=== PATIENT | male | born 1970 | race Caucasian/White ===

== ENCOUNTER → 2019-03-13 11:10 | Outpatient (BNVA) | payer MEDICARE, MEDICAID, SELFPAY | PROVIDERS: Family Provider Nurse Practitioner; PCP Nurse Practitioner; Visit Provider Nurse Practitioner | DX: G89.29 Other chronic pain (principal); M54.16 Radiculopathy, lumbar region; E11.40 Type 2 diabetes mellitus with diabetic neuropathy, unspecified; Z98.890 Other specified postprocedural states; Z79.891 Long term (current) use of opiate analgesic | CPT/HCPCS: 99213; 99214 ==

== ENCOUNTER → 2019-04-10 11:36 | Outpatient (BNVA) | payer MEDICARE, MEDICAID, SELFPAY | PROVIDERS: Family Provider Nurse Practitioner; PCP Nurse Practitioner; Visit Provider Anesthesiology | DX: G89.29 Other chronic pain (principal); M54.16 Radiculopathy, lumbar region; M79.651 Pain in right thigh; E11.40 Type 2 diabetes mellitus with diabetic neuropathy, unspecified; Z79.891 Long term (current) use of opiate analgesic | CPT/HCPCS: 99214 ==

== ENCOUNTER → 2019-06-05 09:04 | Outpatient (BNVA) | payer MEDICARE, MEDICAID, SELFPAY | PROVIDERS: Family Provider Nurse Practitioner; PCP Nurse Practitioner; Visit Provider Nurse Practitioner | DX: Z76.89 Persons encountering health services in other specified circumstances (principal) | CPT/HCPCS: 99213 ==

== ENCOUNTER → 2019-06-11 16:37 | Outpatient (BNVA) | payer MEDICARE, MEDICAID, SELFPAY | PROVIDERS: Family Provider Nurse Practitioner; PCP Nurse Practitioner; Visit Provider Nurse Practitioner | DX: E10.9 Type 1 diabetes mellitus without complications (principal) | CPT/HCPCS: 80053; 80061; 82044; 83036 ==

== ENCOUNTER → 2019-08-11 10:17 | Outpatient (BNVA) | payer MEDICARE, MEDICAID, SELFPAY | PROVIDERS: Family Provider Nurse Practitioner; PCP Nurse Practitioner; Visit Provider Nurse Practitioner | DX: G89.29 Other chronic pain (principal); M54.16 Radiculopathy, lumbar region; M54.9 Dorsalgia, unspecified; Z79.891 Long term (current) use of opiate analgesic | CPT/HCPCS: 99213 ==

== ENCOUNTER 2019-09-25 13:29 | Emergency (ER) | payer MEDICARE, MEDICAID, SELFPAY ==
[2019-09-25 13:31] VITALS: BMI 25.5
[2019-09-25 13:35] VITALS: BP 132/81; PULSE 62; PULSE 74; RESP 16; RESP 18; TEMP 36.7; O2SAT 98; O2SAT 99
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
[2019-09-25 14:22] VITALS: RESP 18; O2SAT 98
[2019-09-25] MEDS: ondansetron 2 mg/ML SDV 2 mL 4 MG IVP (14:22)
[2019-09-25] MEDS: morphine 4 mg/mL SDV 1 mL IVP (14:22)
[2019-09-25 14:23] LABS: Alanine Aminotransferase 29 U/L (0-41); Albumin Level 3.9 g/dL (3.5-5.2); Alkaline Phosphatase 143 IU/L (40-130); Aspartate Amino Transferase 44 U/L (0-40); Blood Urea Nitrogen 7 mg/dL (6-20); Calcium 8.5 mg/dL (8.5-10.5); Carbon Dioxide 24 mmol/L (22-29); Chloride 103 mmol/L (98-107); Globulin 2.9 g/dL (1.3-4.6); Glomerular Filtration Rate 119.4 mL/min (90-130); Glucose 61 mg/dL (65-115); Osmolality Calculated 280 mOsm/kg (285-295); Sodium 138 mmol/L (136-145); Total Bilirubin 0.3 mg/dL (0.15-1.2); Total Protein 6.8 g/dL (6.6-8.7)
[2019-09-25 14:46] LABS: Anion Gap 14.8 (5-19); Potassium 3.8 mmol/L (3.5-5.1)
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
[2019-09-25 15:23] LABS: Basophils # 0.1 10^3/uL (0.0-0.1); Basophils % 0.8 %; Eosinophils # 0.2 10^3/uL (0.0-0.8); Eosinophils % 1.7 %; Hematocrit 39.5 % (42.0-52.0); Hemoglobin 12.5 g/dL (11.7-16.6); Lymphocytes # 3.3 10^3/uL (0.8-4.8); Lymphocytes % 24.4 %; Mean Corpuscular HGB Conc 31.6 g/dL (30.0-36.0); Mean Corpuscular Hemoglobin 30.1 pg (28.0-34.0); Mean Corpuscular Volume 95.2 fL (80-94); Mean Platelet Volume 9.4 fL (7.4-10.4); Monocytes # 1.3 10^3/uL (0.2-0.9); Monocytes % 9.7 %; Neutrophils # 8.41 10^3/uL (1.8-7.7); Nucleated Red Blood Cells % 0 %; Platelet Count 313 10^3/cmm (130-400); Red Blood Count 4.15 10^6/uL (4.1-5.3); Red Cell Distribution Width 12.5 % (12.1-15.1); White Blood Count 13.3 10^3/uL (4.0-10.0)
--- NOTE | 2019-09-25 15:47 | PC.NURSE ---
blood glucose is 94. nurse is aware
[2019-09-25 15:51] LABS: Glucose Point of Care 94 mg/dL (70-110)
[2019-09-25 15:53] VITALS: BP 118/83; PULSE 74; RESP 18; TEMP 36.6; O2SAT 98
== END 2019-09-25 16:01 ==
PROVIDERS: Emergency Provider Emergency Medicine; Family Provider Nurse Practitioner; PCP Nurse Practitioner
DX: S02.0XXB Fracture of vault of skull, initial encounter for open fracture (principal); S02.40EB Zygomatic fracture, right side, initial encounter for open fracture; Y00.XXXA Assault by blunt object, initial encounter; E16.2 Hypoglycemia, unspecified; Z79.82 Long term (current) use of aspirin; Z79.02 Long term (current) use of antithrombotics/antiplatelets; Z79.4 Long term (current) use of insulin; I25.10 Atherosclerotic heart disease of native coronary artery without angina pectoris; E10.40 Type 1 diabetes mellitus with diabetic neuropathy, unspecified; Z87.891 Personal history of nicotine dependence
CPT/HCPCS: 12032; 12052; 12345; 36416; 70450; 70486; 72125; 80053; 82962; 85025; 86850; 86900; 96365; 96375; 96376; 99282; 99285; J0690; J2270; J2405

== ENCOUNTER → 2019-10-13 13:32 | Outpatient (BNVA) | payer MEDICARE, MEDICAID, SELFPAY | PROVIDERS: Family Provider Nurse Practitioner; PCP Nurse Practitioner; Visit Provider Anesthesiology | DX: G89.29 Other chronic pain (principal); M54.41 Lumbago with sciatica, right side; M54.16 Radiculopathy, lumbar region; M54.9 Dorsalgia, unspecified; Z79.891 Long term (current) use of opiate analgesic | CPT/HCPCS: 99213; 99214 ==

== ENCOUNTER 2019-11-04 09:47 | Outpatient (CLI) | payer MEDICARE, MEDICAID, SELFPAY ==
--- NOTE | 2019-11-04 09:58 | CT_ITS ---
WS: [id number] CT HEAD NONCONTRAST HISTORY: SUBDURAL HEMATOMA, SKULL FRACTURE TECHNIQUE: Contiguous axial imaging performed through the brain in 2.5 mm imaging. Bone and soft tiss ue windows. All CT scans at [facility] use at least one of these dose optimization techniq ues: automated exposure control; mA and/or kV adjustment per patient size (includes targeted exams wh ere dose is matched to clinical indication); or iterative reconstruction. DLP: 992.04 mGycm COMPARISON: 09/25/2019 Significant improvement in the recently described RIGHT temporal lobe hemorrhagic contusion in the RI GHT frontal hemorrhagic contusion with adjacent subdural blood and subarachnoid blood. No new or incr easing acute blood products. There is an area of decreased attenuation in the RIGHT temporal lobe fro m the resolving hemorrhage. No significant atrophy. No midline shift. No intraventricular blood. No hydrocephalus. Ventricles: Normal size with no hydrocephalus. Paranasal sinuses: As visualized are clear. Mastoid air cells: Well pneumatized. Calvarium and scalp: There is a depressed skull fracture over the RIGHT temporal bone. Fracture is de pressed by 7.6 mm. Nondisplaced RIGHT zygomatic arch fracture. Resolving scalp hematoma and subcutaneous air. CT/CT head wo con* [id number] IMPRESSION: 1. Significant improvement of the hemorrhagic contusions in the RIGHT frontal and RIGHT temporal lobe with adjacent subdural and subarachnoid blood. No signi ficant residual acute blood products are identified. 2. No hydrocephalus. 3. Depressed skull fracture RIGHT temporal bone is unchanged.
== END 2019-11-04 09:48 | disposition home or self-care (01) ==
LOC: RADWPI 09:51
PROVIDERS: Family Provider Nurse Practitioner; PCP Nurse Practitioner; Visit Provider Neurological Surgery
DX: S06.5X9A Traumatic subdural hemorrhage with loss of consciousness of unspecified duration, initial encounter (principal); S02.19XA Other fracture of base of skull, initial encounter for closed fracture; X58.XXXA Exposure to other specified factors, initial encounter
CPT/HCPCS: 70450

== ENCOUNTER → 2019-11-05 10:06 | Outpatient (BNVA) | payer MEDICARE, MEDICAID, SELFPAY | PROVIDERS: Family Provider Nurse Practitioner; PCP Nurse Practitioner; Visit Provider Nurse Practitioner | DX: E10.9 Type 1 diabetes mellitus without complications (principal); Z95.9 Presence of cardiac and vascular implant and graft, unspecified; R39.11 Hesitancy of micturition; J45.909 Unspecified asthma, uncomplicated | CPT/HCPCS: 80053; 80061; 83036 ==

== ENCOUNTER → 2019-12-09 10:25 | Outpatient (BNVA) | payer MEDICARE, MEDICAID, SELFPAY | PROVIDERS: Family Provider Nurse Practitioner; PCP Nurse Practitioner; Visit Provider Anesthesiology | DX: G89.29 Other chronic pain (principal); M54.41 Lumbago with sciatica, right side; M54.16 Radiculopathy, lumbar region; M54.9 Dorsalgia, unspecified; E11.40 Type 2 diabetes mellitus with diabetic neuropathy, unspecified; Z79.891 Long term (current) use of opiate analgesic | CPT/HCPCS: 99213; 99214 ==

== ENCOUNTER → 2020-01-14 15:12 | Outpatient (BNVA) | payer MEDICARE, MEDICAID, SELFPAY | PROVIDERS: Family Provider Nurse Practitioner; PCP Nurse Practitioner; Visit Provider Nurse Practitioner Family | DX: Z11.59 Encounter for screening for other viral diseases (principal) | CPT/HCPCS: 87635 ==

== ENCOUNTER → 2020-02-09 08:47 | Outpatient (BNVA) | payer MEDICARE, MEDICAID, SELFPAY | PROVIDERS: Family Provider Nurse Practitioner; PCP Nurse Practitioner; Visit Provider Anesthesiology | DX: Z95.9 Presence of cardiac and vascular implant and graft, unspecified (principal); E10.65 Type 1 diabetes mellitus with hyperglycemia; Z23 Encounter for immunization; R39.11 Hesitancy of micturition; I25.10 Atherosclerotic heart disease of native coronary artery without angina pectoris; J30.1 Allergic rhinitis due to pollen; G89.29 Other chronic pain; M54.41 Lumbago with sciatica, right side; M54.16 Radiculopathy, lumbar region; M54.9 Dorsalgia, unspecified; Z79.891 Long term (current) use of opiate analgesic | CPT/HCPCS: 80053; 80061; 82043; 83036; 84443; 85025; 99212; 99214 ==

== ENCOUNTER → 2020-04-13 10:42 | Outpatient (BNVA) | payer MEDICARE, MEDICAID, SELFPAY | PROVIDERS: Family Provider Nurse Practitioner; PCP Nurse Practitioner; Visit Provider Nurse Practitioner | DX: G89.29 Other chronic pain (principal); M54.9 Dorsalgia, unspecified; M54.16 Radiculopathy, lumbar region; Z79.891 Long term (current) use of opiate analgesic | CPT/HCPCS: 99213 ==

== ENCOUNTER → 2020-05-11 11:57 | Outpatient (BNVA) | payer MEDICARE, MEDICAID, SELFPAY | PROVIDERS: Family Provider Nurse Practitioner; PCP Nurse Practitioner; Visit Provider Nurse Practitioner | DX: E10.65 Type 1 diabetes mellitus with hyperglycemia (principal); Z95.9 Presence of cardiac and vascular implant and graft, unspecified; R39.11 Hesitancy of micturition; I25.10 Atherosclerotic heart disease of native coronary artery without angina pectoris; J45.909 Unspecified asthma, uncomplicated; B35.4 Tinea corporis | CPT/HCPCS: 80053; 83036 ==

== ENCOUNTER → 2020-06-08 09:42 | Outpatient (BNVA) | payer MEDICARE, MEDICAID, SELFPAY | PROVIDERS: Family Provider Nurse Practitioner; PCP Nurse Practitioner; Visit Provider Anesthesiology | DX: G89.29 Other chronic pain (principal); M54.9 Dorsalgia, unspecified; M54.16 Radiculopathy, lumbar region; Z79.891 Long term (current) use of opiate analgesic | CPT/HCPCS: 99213 ==

== ENCOUNTER → 2020-07-27 09:02 | Outpatient (BNVA) | payer MEDICARE, MEDICAID, SELFPAY | PROVIDERS: Family Provider Nurse Practitioner; PCP Nurse Practitioner; Visit Provider Nurse Practitioner | DX: G89.29 Other chronic pain (principal); M54.9 Dorsalgia, unspecified; M54.16 Radiculopathy, lumbar region; E11.40 Type 2 diabetes mellitus with diabetic neuropathy, unspecified; Z79.891 Long term (current) use of opiate analgesic; Z87.891 Personal history of nicotine dependence | CPT/HCPCS: 99213; 99214 ==

== ENCOUNTER → 2020-08-15 16:22 | Outpatient (BNVA) | payer MEDICARE, MEDICAID, SELFPAY | PROVIDERS: Family Provider Nurse Practitioner; PCP Nurse Practitioner; Visit Provider Nurse Practitioner | DX: E11.40 Type 2 diabetes mellitus with diabetic neuropathy, unspecified (principal); I25.10 Atherosclerotic heart disease of native coronary artery without angina pectoris; J45.909 Unspecified asthma, uncomplicated; R39.11 Hesitancy of micturition | CPT/HCPCS: 80053; 80061; 83036 ==

== ENCOUNTER → 2020-10-06 08:43 | Outpatient (BNVA) | payer MEDICARE, MEDICAID, SELFPAY | PROVIDERS: Family Provider Nurse Practitioner; PCP Nurse Practitioner; Visit Provider Nurse Practitioner | DX: G89.29 Other chronic pain (principal); M54.16 Radiculopathy, lumbar region; E11.40 Type 2 diabetes mellitus with diabetic neuropathy, unspecified; Z79.891 Long term (current) use of opiate analgesic | CPT/HCPCS: 99214 ==

== ENCOUNTER → 2020-10-24 14:20 | Outpatient (BNVA) | payer MEDICARE, MEDICAID, SELFPAY | PROVIDERS: Family Provider Nurse Practitioner; PCP Nurse Practitioner; Visit Provider Nurse Practitioner | DX: G89.29 Other chronic pain (principal); M54.9 Dorsalgia, unspecified; Z79.891 Long term (current) use of opiate analgesic | CPT/HCPCS: 80307 ==

== ENCOUNTER 2020-12-09 10:36 | Outpatient (CLI) | payer MEDICARE, MEDICAID, SELFPAY ==
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
--- NOTE | 2020-12-09 10:42 | MR_ITS ---
WS: [id number] MRI LUMBAR SPINE NONCONTRAST TECHNIQUE: Sagittal T1, T2 and STIR imaging. Axial T1 and T2 imaging. CLINICAL INFORMATION: LOW BACK PAIN FINDINGS: Normal lumbar alignment. No acute compression. No high-grade central canal stenosis. Incidental Tarlo v cysts in the sacrum. L1-L2: Tiny right foraminal protrusion with mild right foraminal narrowing. Spinal canal and foramen are patent. Mild facet arthropathy L2-L3: Normal L3-L4: No significant disc bulging. Mild facet arthropathy. Slight eccentric disc bulging with mild r ight foraminal narrowing. Left foramen is patent. Spinal canal is patent. L4-L5: Mild disc bulging eccentric to the right with a small annular fissure and foraminal protrusion . Slight contact of the exiting right L4 nerve root with a small foraminal protrusion. Recommend tyshawn elation for right L4 nerve root symptoms. Slight effacement of the ventral thecal sac. Mild facet art hropathy. Left foramen is patent. L5-S1: Normal. Visualized pelvic bony structures: Normal. Paravertebral soft tissues: Normal. MR/MR lumbar spine wo con* [id number] IMPRESSION: 1. Mild lumbar curve. No acute compression. No high-grade central canal stenos is. 2. Right eccentric disc bulging L4-5 with a small annular tear and slight impi ngement on the exiting right L4 nerve root. Recommend correlation right L4 nerv e root symptoms. 3. Slight narrowing of the right L4-5 subarticular recess. 4. Tiny right foraminal protrusion L1-L2 slightly contacts the proximal exitin g right L1 nerve root. 5. Mild right L3-4 foraminal narrowing. 6. Mild facet arthropathy L3-L4 and L4-L5.
== END 2020-12-09 10:37 | disposition home or self-care (01) ==
PROVIDERS: PCP Nurse Practitioner; Visit Provider Nurse Practitioner
DX: M51.26 Other intervertebral disc displacement, lumbar region (principal); M47.816 Spondylosis without myelopathy or radiculopathy, lumbar region
CPT/HCPCS: 72120; 72148

== ENCOUNTER → 2020-12-19 09:44 | Outpatient (BNVA) | payer MEDICARE, MEDICAID, SELFPAY | PROVIDERS: PCP Nurse Practitioner; Visit Provider Nurse Practitioner | DX: E10.65 Type 1 diabetes mellitus with hyperglycemia (principal); I25.10 Atherosclerotic heart disease of native coronary artery without angina pectoris; M54.16 Radiculopathy, lumbar region; R39.11 Hesitancy of micturition; J45.909 Unspecified asthma, uncomplicated | CPT/HCPCS: 80053; 80061; 81003; 83036 ==

== ENCOUNTER 2021-07-25 16:50 | Emergency (ER) | payer MEDICARE, MEDICAID, SELFPAY ==
[2021-07-25 16:58] VITALS: BP 157/87; PULSE 74; RESP 18; TEMP 37.3; O2SAT 97; BMI 30.1
--- NOTE | 2021-07-25 17:05 | W.ED.DENTAL ---
HPI - Dental/Oral General: Chief complaint: Dental/Oral Stated complaint: Swollen Face and hurting Time Seen by Provider: 07/25/21 17:05 History of Present Illness: 51-year-old male patient comes in today for complaints of right side dental pain and facial swelling. Patient is managing secretions well. Patient appears mildly unwell but not toxic. Patient appears in mild to moderate pain. Patient does have a history of diabetes. Associated symptoms: Denies fever(s) Review of Systems General: Reports: 10 or more systems reviewed and unremarkable except in HPI and below Const: Denies: fever(s) ENMT: Reports: dental pain Card: Denies: chest pain Resp: Denies: dyspnea GI: Denies: nausea or vomiting Musc: Denies: neck pain Skin/Breast: Denies: rash PFSH ED PFSH: Medical History Allergy-induced asthma Chronic back pain Coronary artery disease Diabetic neuropathy DM type 1 (diabetes mellitus, type 1) correction (current) use of opiate analgesic Lumbar radiculitis Opioid contract exists Seasonal allergic rhinitis Urinary hesitancy Surgical History S/P arterial stent 4x: 2010? S/P shoulder surgery right Family History Father Diabetes Myocardial infarct Family/Other Myocardial infarct BOTH SIDES OF THE FAMILY Social History Second hand smoke exposure: No Smoking risk assessment/counseling performed?: No Alcohol intake: never Desire information about alcohol rehabilitation?: No Counseling given: No Desire information about substance/drug rehabilitation?: No Counseling given: No Adopted: No Caregiver/support person: No Lives independently: Yes Household members: spouse Marital status: Number of children: 2 service: No Current occupational status: disabled History of recent travel: No Current gender identity: Male Physical Exam Const: COMMON NORMALS: alert HENMT: FACE & SINUS: other (Right side facial swelling) MOUTH: Normal oral and palatal mucosa present TEETH & GINGIVA: Yes caries and Yes poor dentition THROAT: posterior oropharynx normal Neck/C-Spine: COMMON NORMALS: full ROM Resp: COMMON NORMALS: normal respiratory effort Cardio: COMMON NORMALS: regular rate RATE: regular rate Extremity: COMMON NORMALS: normal to inspection Neuro: SENSORIUM/ORIENTATION: Yes alert Skin: COMMON NORMALS: no rashes or lesions noted GENERAL SKIN EXAM: no rashes or lesions noted Course Vital Signs: Vital signs: Vital Signs Temperature 99.2 F 07/25/21 16:58 Pulse Rate 74 07/25/21 16:58 Respiratory Rate 18 07/25/21 16:58 Blood Pressure 157/87 07/25/21 16:58 Pulse Oximetry 97 07/25/21 16:58 [facility] - Dental/Oral Medical Decision Making 51-year-old male patient comes in today with right side facial swelling. On exam patient has poor dentition with multiple caries, right side facial swelling with tenderness. Posterior pharynx is symmetrical and no significant abnormality. Respirations are even lungs are clear to auscultation. Differential diagnosis includes facial cellulitis, dental abscess, sinusitis. Tympanic membrane is normal. Posterior pharynx is symmetrical without any signs of significant swelling. Patient manages secretions well. Patient has poor dentition with swelling of the gingiva. Believe the patient probably has a dental abscess we will treat with clindamycin 300 mg 4 times a day for the next 7 days. Patient is already talked to his dentist and will follow up as the swelling improves. Discharge Plan Discharge Patient Disposition: Home Clinical Impression: Dental abscess Condition: Stable Prescriptions: New clindamycin HCl 300 mg capsule 300 mg PO QID 7 Days Qty: 28 0RF No Action ketoconazole 2 % cream 1 applic topical BID Qty: 30 0RF (DME) pen needle, diabetic [BD Ultra-Fine Short Pen Needle] 31 gauge x 5/16 needle See Rx Instructions .ROUTE .MEDSUPPLY Qty: 100 8RF Rx Instructions: use up to 4 times day gabapentin 600 mg tablet 600 mg PO TID Qty: 90 2RF carvedilol 6.25 mg tablet 6.25 mg PO BID Qty: 60 2RF clopidogrel 75 mg tablet 75 mg PO DAILY Qty: 30 2RF finasteride 5 mg tablet 5 mg PO DAILY Qty: 30 2RF fluticasone propionate 50 mcg/actuation spray,suspension 2 spray INTRANASAL DAILY Qty: 16 2RF Vascepa 1 gram capsule 2 g PO BID Qty: 120 2RF Novolog PenFill U-100 Insulin 100 unit/mL cartridge 28 - 40 unit SUBCUT TID Qty: 30 2RF Tresiba FlexTouch U-100 100 unit/mL (3 mL) insulin pen See Rx Instructions SUBCUT DAILY Qty: 15 2RF Rx Instructions: up to 40 units SUBCUT daily; levalbuterol tartrate [Xopenex HFA] 45 mcg/actuation HFA aerosol inhaler 2 inh INHALATION Q6H Qty: 15 2RF lisinopril 5 mg tablet 5 mg PO DAILY Qty: 30 2RF metformin 500 mg tablet 500 mg PO DAILY Qty: 30 2RF rosuvastatin [Crestor] 10 mg tablet 10 mg PO DAILY Qty: 30 2RF olopatadine [Pataday] 0.2 % drops 1 drop ophthalmic (eye) QAM 0RF nitroglycerin [Nitrostat] 0.4 mg tablet, sublingual 0.4 mg SUBLINGUAL Q5M PRN0RF cholecalciferol (vitamin D3) 50,000 unit tablet 50,000 unit PO ONCE 0RF (DME) lancets Misc See Rx Instructions .ROUTE .MEDSUPPLY Qty: 50 0RF Rx Instructions: As directed aspirin 325 mg tablet 325 mg PO ONCE 0RF hydrocodone-acetaminophen 10-325 mg tablet 1 tab PO .six times daily PRN (Reason: pain) 30 Days Qty: 180 0RF Rx Instructions: Fill on or after 08/10/20 lidocaine 5 % adhesive patch,medicated 1 patch topical DAILY 30 Days Qty: 30 0RF Rx Instructions: leave on most painful area for up to 12 hrs hydrocodone-acetaminophen 10-325 mg tablet 1 tab PO .6 times a day PRN (Reason: pain) 30 Days Qty: 180 0RF Rx Instructions: Fill on or after 10/10/20 (DME) blood-glucose meter [Relion Confirm] Kit See Rx Instructions .ROUTE .MEDSUPPLY Qty: 1 5RF Rx Instructions: daily (DME) Relion Confirm-Micro Strip See Rx Instructions .ROUTE .MEDSUPPLY Qty: 100 5RF Rx Instructions: 3 times day oxycodone [OxyContin] 15 mg tablet,oral only,ext.rel.12 hr 15 mg PO BID 30 Days Qty: 60 0RF Rx Instructions: Fill Today Discharge Orders: Discharge ED (Routine); Ordered 07/25/21 Ordered By: Russell Alexander Referrals: Belinda Logan, [facility] [Primary Care Provider] - Discharge Diet: Usual diet Discharge Activity: Increase activity as tolerated Patient Instructions: Dental Abscess (ED) Activity Restrictions/Additional Instructions: Take antibiotics as directed. Clindamycin 300 mg 1 capsule 4 times a day for the next 7 days. Use acetaminophen and ibuprofen for pain. Use ice and heat for further pain relief. Drink plenty of water with medications. Follow-up with dentist for definitive care. Coding Level of Care Code ED Postdoctoral Research Associate for Preeti Salmon
== END 2021-07-25 17:26 | disposition home or self-care (01) ==
PROVIDERS: Emergency Provider Nurse Practitioner Family; PCP Nurse Practitioner
DX: K04.7 Periapical abscess without sinus (principal)
CPT/HCPCS: 99283

== ENCOUNTER → 2021-07-27 09:07 | Outpatient (BNVA) | payer MEDICARE, MEDICAID, SELFPAY | PROVIDERS: PCP Nurse Practitioner; Visit Provider Nurse Practitioner | DX: I25.10 Atherosclerotic heart disease of native coronary artery without angina pectoris (principal); E10.65 Type 1 diabetes mellitus with hyperglycemia; J45.909 Unspecified asthma, uncomplicated; M54.16 Radiculopathy, lumbar region; J30.1 Allergic rhinitis due to pollen; R39.11 Hesitancy of micturition | CPT/HCPCS: 80053; 80061; 81003; 83036; 84443; 87086 ==

== ENCOUNTER 2021-09-03 13:59 | Emergency (ER) | payer MEDICARE, MEDICAID, SELFPAY ==
--- NOTE | 2021-09-03 14:00 | W.ED.GENADLT ---
HPI - General Adult General: Chief complaint: General Medical Stated complaint: HYPOGLYCEMIA Time Seen by Provider: 09/03/21 13:59 History of Present Illness: Mr. Crisostomo is a 51-year-old gentleman with significant past medical history of type 1 diabetes on insulin and no other oral agent who presents to the emergency department due to hypoglycemia. He reports being at his baseline health past few days. He was more active than typical last night and was found just prior to coming end with a low blood sugar of 20 initially. The patient was not up and around this morning. He denies trauma or other significant changes in health. He thinks he is eating and drinking normally. He was taking normal amount of insulin. Overall feels well at this point. Denies recent changes in health. No other specific changes in health, exacerbating, or alleviating factors identified. 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 S/P shoulder surgery right Family History Father Diabetes Myocardial infarct Family/Other Myocardial infarct BOTH SIDES OF THE FAMILY Social History Smoking and tobacco status: former smoker Second hand smoke exposure: No Smoking risk assessment/counseling performed?: No Alcohol intake: never Desire information about alcohol rehabilitation?: No Counseling given: No Desire information about substance/drug rehabilitation?: No Counseling given: No Adopted: No Caregiver/support person: No Lives independently: Yes Household members: spouse Marital status: Number of children: 2 service: No Current occupational status: disabled History of recent travel: No Current gender identity: Male Physical Exam Const: COMMON NORMALS: patient oriented x3 and alert GENERAL APPEARANCE: cooperative and well developed HENMT: COMMON NORMALS: normocephalic and atraumatic HEAD & SCALP: normocephalic and atraumatic Eye: COMMON NORMALS: conjunctivae normal CONJUNCTIVA: Yes conjunctivae normal SCLERA: sclerae normal Neck/C-Spine: COMMON NORMALS: supple GENERAL: Yes trachea midline Resp: COMMON NORMALS: normal respiratory effort and clear to auscultation bilaterally EFFORT & INSPECTION: Yes able to speak in complete sentences AUSCULTATION: clear to auscultation bilaterally Cardio: COMMON NORMALS: regular rate and regular rhythm RATE: regular rate RHYTHM: regular rhythm GI: COMMON NORMALS: Soft to palpation PALPATION: Yes Soft to palpation and No Tenderness to palpation present (GI) Extremity: GENERAL: Yes normal exam except as noted and No edema Neuro: COMMON NORMALS: patient oriented x3, CN's II-XII intact bilaterally, moves all extremities, no focal motor deficits, no sensory deficits noted and gait normal SENSORIUM/ORIENTATION: Yes alert and No Orientation impaired Psych: COMMON NORMALS: mental status grossly normal and Normal thought process present THOUGHT PROCESS: Normal thought process present Course ED course: - Patient was seen and evaluated by me at bedside - Patient placed on cardiac monitors, IV access obtained - Initial evaluation notable for exam as above - Labs personally interpreted by me - D50 given along with food for hypoglycemia - Labs notable for mild leukocytosis, normal hemoglobin. Metabolic end with low blood glucose though patient is asymptomatic. Urinalysis without evidence of urinary tract infection. - Upon serial reexamination after treatment the patient was improved upon serial reassessment blood glucose. Patient is not on oral hypoglycemic agents though he is on insulin degludec which does have long-acting. - Based on patient history, evaluation, and testing as interpreted the most likely cause of the patient's condition is hypoglycemia secondary to increased activity in the context of not eating enough and insulin use. -Patient expressed strong diet for discharge and can safely be watched at home. - The results of ED evaluation were discussed with the patient including prescriptions and/or symptomatic cares (if applicable) including appropriate and responsible use, followup plan, and return precautions. The patient verbalized understanding and felt safe for discharge. - Patient discharged in satisfactory condition. Note: Click bubbles or prepopulated wheeler in note writing are used for assistance with data collection and billing and are inherently more limited than narrative and other text portions of this note. Please use narrative for additional clinical history and defer to narrative/free test for any case of contradictory information. If information appears in only free text or click bubble it should be considered present or absent as reported. Please contact note marketing copywriter for clarifications of clinical information or contradictory information. MDM is a brief summary, contradictory or erroneous seeming information should be clarified and full note should be reviewed. Vital Signs: Vital signs: Vital Signs Temperature 97.6 F 09/03/21 14:05 Pulse Rate 54 L 09/03/21 14:05 Respiratory Rate 16 09/03/21 14:05 Blood Pressure 130/77 09/03/21 14:05 Pulse Oximetry 100 09/03/21 14:05 MDM - General Adult Medical Decision Making 51-year-old gentleman with history of insulin-dependent diabetes presenting due to low blood glucose. He was observed in the emergency department and ate after receiving D50. He did not have return of hypoglycemia. He expresses strong desire to be discharged and has someone who can watch him at home. Strict return precautions given. Medical Records I reviewed the patient's medical records. Lab Data I reviewed the patient's lab results. : 09/03/21 14:18 09/03/21 14:18 Laboratory Results WBC 12.2 10^3/uL (4.0-10.0) H 09/03/21 14:18 RBC 4.61 10^6/uL (4.1-5.3) 09/03/21 14:18 Hgb 13.1 g/dL (11.7-16.6) 09/03/21 14:18 Hct 39.9 % (42.0-52.0) L 09/03/21 14:18 MCV 86.6 fl (80-94) 09/03/21 14:18 MCH 28.4 pg (28.0-34.0) 09/03/21 14:18 MCHC 32.8 g/dL (30.0-36.0) 09/03/21 14:18 RDW 13.5 % (12.1-15.1) 09/03/21 14:18 Plt Count 379 10^3/cmm (130-400) 09/03/21 14:18 MPV 9.4 fL (7.4-10.4) 09/03/21 14:18 Neut % (Auto) 73.9 % 09/03/21 14:18 Lymph % (Auto) 14.9 % 09/03/21 14:18 [place] % (Auto) 8.2 % 09/03/21 14:18 Eos % (Auto) 1.8 % 09/03/21 14:18 Baso % (Auto) 0.6 % 09/03/21 14:18 Neut # (Auto) 9.00 10^3/uL (1.8-7.7) H 09/03/21 14:18 Lymph # (Auto) 1.8 10^3/uL (0.8-4.8) 09/03/21 14:18 [place] # (Auto) 1.0 10^3/uL (0.2-0.9) H 09/03/21 14:18 Eos # (Auto) 0.2 10^3/uL (0.0-0.8) 09/03/21 14:18 Baso # (Auto) 0.1 10^3/uL (0.0-0.1) 09/03/21 14:18 Nucleated RBC % (auto) 0 % 09/03/21 14:18 Nucleated RBCs # 0.0 /100WBC 09/03/21 14:18 Sodium 139 mmol/L (136-145) 09/03/21 14:18 Potassium 3.8 mmol/L (3.5-5.1) 09/03/21 14:18 Chloride 101 mmol/L (98-107) 09/03/21 14:18 Carbon Dioxide 27 mmol/L (22-29) 09/03/21 14:18 Anion Gap 14.8 (5-19) 09/03/21 14:18 BUN 13 mg/dL (6-20) 09/03/21 14:18 Creatinine 0.9 mg/dL (0.7-1.2) 09/03/21 14:18 GFR Calculation 88.6 mL/min (90-130) L 09/03/21 14:18 Glucose 55 mg/dL (65-115) L 09/03/21 14:18 POC Glucose 138 mg/dL (70-110) H 09/03/21 16:24 Calculated Osmolality 286 mOsm/kg (285-295) 09/03/21 14:18 Calcium 9.3 mg/dL (8.5-10.5) 09/03/21 14:18 Total Bilirubin 0.3 mg/dL (0.15-1.2) 09/03/21 14:18 AST 18 U/L (0-40) 09/03/21 14:18 ALT 13 U/L (0-41) 09/03/21 14:18 Alkaline Phosphatase 124 IU/L (40-130) 09/03/21 14:18 Creatine Kinase 145 U/L (39-308) 09/03/21 14:18 Total Protein 7.4 g/dL (6.6-8.7) 09/03/21 14:18 Albumin 4.2 g/dL (3.5-5.2) 09/03/21 14:18 Globulin 3.2 g/dL (1.3-4.6) 09/03/21 14:18 Urine Color Straw (Yellow) 09/03/21 15:55 Urine Appearance Clear (CLEAR) 09/03/21 15:55 Urine pH 5 (5-7) 09/03/21 15:55 Ur Specific [place] 1.020 (1.005-1.030) 09/03/21 15:55 Urine Protein Neg (Negative) 09/03/21 15:55 Urine Glucose (UA) 1+ (Normal) H 09/03/21 15:55 Urine Ketones Negative (Negative) 09/03/21 15:55 Urine Blood Neg (Negative) 09/03/21 15:55 Urine Nitrate Negative (Negative) 09/03/21 15:55 Urine Bilirubin Neg (Negative) 09/03/21 15:55 Urine Urobilinogen Norm mg/dL (Negative) 09/03/21 15:55 Ur Leukocyte Esterase Negative (Negative) 09/03/21 15:55 Discharge Plan Discharge Patient Disposition: Home Clinical Impression: Hypoglycemia due to type 1 diabetes mellitus, Leukocytosis Condition: Stable Prescriptions: No Action ketoconazole 2 % cream 1 applic topical BID Qty: 30 0RF olopatadine [Pataday] 0.2 % drops 1 drop ophthalmic (eye) QAM 0RF nitroglycerin [Nitrostat] 0.4 mg tablet, sublingual 0.4 mg SUBLINGUAL Q5M PRN0RF (DME) lancets Misc See Rx Instructions .ROUTE .MEDSUPPLY Qty: 50 0RF Rx Instructions: As directed aspirin 325 mg tablet 325 mg PO ONCE 0RF lidocaine 5 % adhesive patch,medicated 1 patch topical DAILY 30 Days Qty: 30 0RF Rx Instructions: leave on most painful area for up to 12 hrs hydrocodone-acetaminophen 10-325 mg tablet 1 tab PO .6 times a day PRN (Reason: pain) 30 Days Qty: 180 0RF Rx Instructions: Fill on or after 10/10/20 carvedilol 6.25 mg tablet 6.25 mg PO BID Qty: 60 2RF rosuvastatin [Crestor] 10 mg tablet 10 mg PO DAILY Qty: 30 2RF (DME) pen needle, diabetic [BD Ultra-Fine Short Pen Needle] 31 gauge x 5/16 needle See Rx Instructions .ROUTE .MEDSUPPLY Qty: 100 8RF Rx Instructions: use up to 4 times day metformin 500 mg tablet 500 mg PO DAILY Qty: 30 2RF lisinopril 5 mg tablet 5 mg PO DAILY Qty: 30 2RF levalbuterol tartrate [Xopenex HFA] 45 mcg/actuation HFA aerosol inhaler 2 inh INHALATION Q6H Qty: 15 2RF Tresiba FlexTouch U-100 100 unit/mL (3 mL) insulin pen See Rx Instructions SUBCUT DAILY Qty: 15 2RF Rx Instructions: up to 40 units SUBCUT daily; Vascepa 1 gram capsule 2 g PO BID Qty: 120 2RF gabapentin 600 mg tablet 600 mg PO TID Qty: 90 2RF fluticasone propionate 50 mcg/actuation spray,suspension 2 spray INTRANASAL DAILY Qty: 16 2RF finasteride 5 mg tablet 5 mg PO DAILY Qty: 30 2RF clopidogrel 75 mg tablet 75 mg PO DAILY Qty: 30 2RF cholecalciferol (vitamin D3) 125 mcg (5,000 unit) capsule 125 mcg PO .Daily OTC Qty: 30 0RF insulin lispro [Humalog KwikPen Insulin] 100 unit/mL insulin pen See Rx Instructions SUBCUT TID Qty: 15 0RF Rx Instructions: 28-40U SUBCUT three times daily; (DME) blood-glucose meter [Relion Confirm] Kit See Rx Instructions .ROUTE .MEDSUPPLY Qty: 1 5RF Rx Instructions: daily (DME) Relion Confirm-Micro Strip See Rx Instructions .ROUTE .MEDSUPPLY Qty: 100 5RF Rx Instructions: 3 times day oxycodone [OxyContin] 15 mg tablet,oral only,ext.rel.12 hr 15 mg PO BID 30 Days Qty: 60 0RF Rx Instructions: Fill Today Discharge Orders: Discharge ED (Routine); Ordered 09/03/21 Ordered By: Jamie Nino Referrals: Belinda Logan, WAREHOUSE OPERATOR-C [Primary Care Provider] - Discharge Diet: Usual diet Discharge Activity: Increase activity as tolerated Patient Instructions: Hypoglycemia, Hypoglycemia in a Person with Diabetes (ED), What to Do if Your Blood Sugar is Low (ED) Activity Restrictions/Additional Instructions: Thank you for visiting the emergency department. You were seen and evaluated for hypoglycemia. The exact cause of this is unclear. You do have a mildly elevated white blood cell count of this is nonspecific, it could be related to mild infection such as viral illness. Given improvement and ability to tolerate oral intake I believe that it is safe to discharge home. Please check your blood sugar hourly and ensure that you are eating normally. Please ensure that someone is nearby to watch you for the next 12 hours or so and ensure that your sugar does not become low again. Please follow-up with your primary care provider. Please return to the emergency department for recurrent hypoglycemia, uncontrolled high blood sugar, or anything else that you are concerned about a feel needs emergency department evaluation. Coding Level of Care Code ED Music Industry Intern for Preeti Salmon Exam Comprehensive
[2021-09-03 14:05] VITALS: BP 130/77; PULSE 54; RESP 16; TEMP 36.4; O2SAT 100; BMI 31.5
[2021-09-03 14:08] LABS: Glucose Point of Care 108 mg/dL (70-110)
[2021-09-03 14:44] LABS: Basophils # 0.1 10^3/uL (0.0-0.1); Basophils % 0.6 %; Eosinophils # 0.2 10^3/uL (0.0-0.8); Eosinophils % 1.8 %; Hematocrit 39.9 % (42.0-52.0); Hemoglobin 13.1 g/dL (11.7-16.6); Lymphocytes # 1.8 10^3/uL (0.8-4.8); Lymphocytes % 14.9 %; Mean Corpuscular HGB Conc 32.8 g/dL (30.0-36.0); Mean Corpuscular Hemoglobin 28.4 pg (28.0-34.0); Mean Corpuscular Volume 86.6 fl (80-94); Mean Platelet Volume 9.4 fL (7.4-10.4); Monocytes % 8.2 %; Neutrophils % 73.9 %; Nucleated Red Blood Cells % 0 %; Platelet Count 379 10^3/cmm (130-400); Red Blood Count 4.61 10^6/uL (4.1-5.3); Red Cell Distribution Width 13.5 % (12.1-15.1); White Blood Count 12.2 10^3/uL (4.0-10.0)
[2021-09-03 14:48] LABS: Alanine Aminotransferase 13 U/L (0-41); Albumin Level 4.2 g/dL (3.5-5.2); Alkaline Phosphatase 124 IU/L (40-130); Anion Gap 14.8 (5-19); Aspartate Amino Transferase 18 U/L (0-40); Blood Urea Nitrogen 13 mg/dL (6-20); Calcium 9.3 mg/dL (8.5-10.5); Carbon Dioxide 27 mmol/L (22-29); Chloride 101 mmol/L (98-107); Creatine Phosphokinase 145 U/L (39-308); Globulin 3.2 g/dL (1.3-4.6); Glomerular Filtration Rate 88.6 mL/min (90-130); Glucose 55 mg/dL (65-115); Osmolality Calculated 286 mOsm/kg (285-295); Potassium 3.8 mmol/L (3.5-5.1); Sodium 139 mmol/L (136-145); Total Bilirubin 0.3 mg/dL (0.15-1.2); Total Protein 7.4 g/dL (6.6-8.7)
[2021-09-03 15:01] LABS: Glucose Point of Care 59 mg/dL (70-110)
[2021-09-03 15:49] LABS: Glucose Point of Care 78 mg/dL (70-110)
[2021-09-03 16:05] LABS: Add Urine Microscopic? NO; Charge for UA Resulting for Rev
[2021-09-03 16:28] LABS: Glucose Point of Care 138 mg/dL (70-110)
[2021-09-03 16:30] LABS: Bilirubin Urine Neg (Negative); Blood Urine Neg (Negative); Glucose Urine UA 1+ (Normal); Ketones Urine Negative (Negative); Leukocyte Esterase Urine Negative (Negative); Nitrate Urine Negative (Negative); Protein Urine Neg (Negative); Urine Appearance Clear (CLEAR); Urine Color Straw (Yellow); Urobilinogen Urine Norm (Negative); pH Urine 5 (5-7)
== END 2021-09-03 16:52 | disposition home or self-care (01) ==
PROVIDERS: Emergency Provider Emergency Medicine; PCP Nurse Practitioner
DX: E10.649 Type 1 diabetes mellitus with hypoglycemia without coma (principal); D72.829 Elevated white blood cell count, unspecified; Z79.4 Long term (current) use of insulin; Z79.82 Long term (current) use of aspirin
CPT/HCPCS: 36415; 36416; 80053; 81003; 82550; 82962; 85025; 87040; 87205; 99283

== ENCOUNTER → 2021-10-26 12:12 | Outpatient (BNVA) | payer MEDICARE, MEDICAID, SELFPAY | PROVIDERS: PCP Nurse Practitioner; Visit Provider Nurse Practitioner | DX: E10.65 Type 1 diabetes mellitus with hyperglycemia (principal); I25.10 Atherosclerotic heart disease of native coronary artery without angina pectoris | CPT/HCPCS: 80053; 80061; 83036; 85025 ==

== ENCOUNTER → 2022-04-30 11:51 | Outpatient (BNVA) | payer MEDICARE, MEDICAID, SELFPAY | PROVIDERS: PCP Nurse Practitioner; Visit Provider Nurse Practitioner | DX: E10.65 Type 1 diabetes mellitus with hyperglycemia (principal); E55.9 Vitamin D deficiency, unspecified | CPT/HCPCS: 80053; 80061; 81000; 82043; 83036; 85025 ==

== ENCOUNTER → 2022-08-02 11:23 | Outpatient (BNVA) | payer MEDICARE, MEDICAID, SELFPAY | PROVIDERS: PCP Nurse Practitioner; Visit Provider Nurse Practitioner | DX: E10.65 Type 1 diabetes mellitus with hyperglycemia (principal); E55.9 Vitamin D deficiency, unspecified; Z12.5 Encounter for screening for malignant neoplasm of prostate | CPT/HCPCS: 80053; 80061; 81000; 82043; 82306; 83036; 84443; 85025; G0103 ==

== ENCOUNTER → 2022-10-30 12:08 | Outpatient (BNVA) | payer MEDICARE, MEDICAID, SELFPAY | PROVIDERS: PCP Nurse Practitioner; Visit Provider Nurse Practitioner | DX: E10.65 Type 1 diabetes mellitus with hyperglycemia (principal); E55.9 Vitamin D deficiency, unspecified; I25.10 Atherosclerotic heart disease of native coronary artery without angina pectoris; K12.2 Cellulitis and abscess of mouth; R39.11 Hesitancy of micturition; M54.16 Radiculopathy, lumbar region; E10.9 Type 1 diabetes mellitus without complications; J45.909 Unspecified asthma, uncomplicated | CPT/HCPCS: 80053; 82043; 82306; 83036 ==

== ENCOUNTER → 2023-02-04 11:47 | Outpatient (BNVA) | payer MEDICARE, MEDICAID, SELFPAY | PROVIDERS: PCP Nurse Practitioner; Visit Provider Nurse Practitioner | DX: E10.9 Type 1 diabetes mellitus without complications (principal); I25.10 Atherosclerotic heart disease of native coronary artery without angina pectoris | CPT/HCPCS: 80053; 80061; 83036 ==

== ENCOUNTER → 2023-02-11 12:15 | Outpatient (BNVA) | payer MEDICARE, MEDICAID, SELFPAY | PROVIDERS: PCP Nurse Practitioner; Visit Provider Nurse Practitioner Family | DX: R19.7 Diarrhea, unspecified (principal) | CPT/HCPCS: 83630; 87045; 87177; 87209; 87427; 87449; 87493 ==

== ENCOUNTER → 2023-09-03 16:01 | Outpatient (BNVA) | payer MEDICARE, MEDICAID, SELFPAY | PROVIDERS: PCP Nurse Practitioner; Visit Provider Nurse Practitioner | DX: I25.10 Atherosclerotic heart disease of native coronary artery without angina pectoris (principal); K12.2 Cellulitis and abscess of mouth; R39.11 Hesitancy of micturition; J30.1 Allergic rhinitis due to pollen; M54.16 Radiculopathy, lumbar region; E10.65 Type 1 diabetes mellitus with hyperglycemia; E10.9 Type 1 diabetes mellitus without complications; B35.4 Tinea corporis; J45.909 Unspecified asthma, uncomplicated; E11.9 Type 2 diabetes mellitus without complications; Z12.5 Encounter for screening for malignant neoplasm of prostate; Z79.899 Other long term (current) drug therapy | CPT/HCPCS: 80053; 80061; 82043; 82607; 83036 ==

== ENCOUNTER → 2023-11-19 15:09 | Outpatient (BNVA) | payer MEDICARE, MEDICAID, SELFPAY | PROVIDERS: PCP Nurse Practitioner; Visit Provider Nurse Practitioner | DX: E55.9 Vitamin D deficiency, unspecified (principal); E11.9 Type 2 diabetes mellitus without complications; M17.12 Unilateral primary osteoarthritis, left knee; M16.12 Unilateral primary osteoarthritis, left hip; M25.552 Pain in left hip; M25.562 Pain in left knee | CPT/HCPCS: 73502; 73562; 80053; 80061; 82043; 82306; 82607; 83036 ==

== ENCOUNTER → 2024-02-25 14:14 | Outpatient (BNVA) | payer MEDICARE, MEDICAID, SELFPAY | PROVIDERS: PCP Nurse Practitioner; Visit Provider Nurse Practitioner | DX: I25.10 Atherosclerotic heart disease of native coronary artery without angina pectoris (principal); R39.11 Hesitancy of micturition; J30.1 Allergic rhinitis due to pollen; M54.16 Radiculopathy, lumbar region; E10.65 Type 1 diabetes mellitus with hyperglycemia; K12.2 Cellulitis and abscess of mouth; J45.909 Unspecified asthma, uncomplicated; E55.9 Vitamin D deficiency, unspecified; Z12.5 Encounter for screening for malignant neoplasm of prostate | CPT/HCPCS: 80053; 82306; 83036; 84443; G0103 ==

== ENCOUNTER → 2024-05-12 13:23 | Outpatient (BNVA) | payer MEDICARE, MEDICAID, SELFPAY | PROVIDERS: PCP Nurse Practitioner; Visit Provider Nurse Practitioner | DX: E11.9 Type 2 diabetes mellitus without complications (principal); E10.65 Type 1 diabetes mellitus with hyperglycemia | CPT/HCPCS: 80053; 80061; 83036 ==

== ENCOUNTER 2024-07-11 09:52 | Observation (INO) | payer MEDICARE, MEDICAID, SELFPAY ==
--- NOTE | 2024-07-11 09:54 | ECG_ITS ---
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 Measurements Intervals [place] Rate: 80 P: 60 SD: 142 QRS: 19 QRSD: 125 T: -24 QT: 357 QTc: 412 Interpretive Statements SINUS RHYTHM WITH FREQUENT VENTRICULAR PREMATURE COMPLEXES INFERIOR MYOCARDIAL INFARCTION , OF INDETERMINATE AGE [40+ ms Q WAVE AND/OR ST/T ABNORMALITY IN II/aVF] Compared to ECG 12/20/2016 09:36:24 Ventricular premature complex(es) now present Myocardial infarct finding still present Electronically Signed On 07-13-2024 09:19:41 CDT by Ammon Godinez M.D. [email or web address]
--- NOTE | 2024-07-11 09:54 | XRR_ITS ---
PROCEDURE INFORMATION: Exam: XR Chest Exam date and time: 07/11/2024 10:14 AM Age: 54 years old Clinical indication: Dyspnea; Additional info: CVA TECHNIQUE: Imaging protocol: Radiologic exam of the chest. Views: 1 view. COMPARISON: CT chest lety w/*[id number] 07/25/2017 8:04 PM FINDINGS: Lungs: A 5 mm calcified granulomas noted in the periphery of the right lower lung. No consolidation. Pleural spaces: Unremarkable. No pleural effusion. No pneumothorax. Heart/Mediastinum: Unremarkable. No cardiomegaly. Bones/joints: The patient is post plate and screw fixation of the right clavicle. XR/XR chest 1V portable [id number] IMPRESSION: No acute cardiopulmonary disease.
--- NOTE | 2024-07-11 09:54 | CTR_ITS ---
PROCEDURE INFORMATION: Exam: CT Head Without Contrast Exam date and time: 07/11/2024 9:58 AM Age: 54 years old Clinical indication: Stroke-like symptoms; Altered mental status/memory loss; Left upper extremity numbness/paresthesia; Additional info: Symptoms of acute stroke; Lt arm/facial weakness; HX RT temporal subdural & skull FX x 5yrs ago due to trauma TECHNIQUE: Imaging protocol: Computed tomography of the head without contrast. Radiation optimization: All CT scans at this facility use at least one of these dose optimization techniques: automated exposure control; mA and/or kV adjustment per patient size (includes targeted exams where dose is matched to clinical indication); or iterative reconstruction. Other technique: STROKE PROTOCOL was implemented. COMPARISON: CT head wo con* [id number] 11/04/2019 10:05 AM RADIATION DOSE METRICS: Total DLP (mGy-cm): 1079.48 FINDINGS: Brain: There is no mass effect, midline shift, acute hemorrhage, extra-axial fluid collection or acute lobar infarct. Cerebral ventricles: No ventriculomegaly. Paranasal sinuses: Visualized sinuses are unremarkable. No fluid levels. Mastoid air cells: Visualized mastoid air cells are well aerated. Orbital cavities: Patient is post left cataract surgery. Bones: There is healed depressed deformity of the right upper temporal bone. Soft tissues: Unremarkable. CT/CT head thrombolytic [id number] IMPRESSION: No acute intracranial process. ASSESSMENT: ASPECTS (Efrn Stroke Program Early CT Score) is 10.
--- NOTE | 2024-07-11 09:54 | CTR_ITS ---
PROCEDURE INFORMATION: Exam: CTA Head With Contrast, Arteriography Exam date and time: 07/11/2024 10:00 AM Age: 54 years old Clinical indication: Stroke-like symptoms; Drowsines/somnolence and speech disturbance; Lt upper extremity weakness; Additional info: CVA TECHNIQUE: Imaging protocol: Computed tomographic angiography of the head with contrast. Exam focused on the arteries. 3D rendering (Not supervised by radiologist): MIP and/or 3D reconstructed images were created by the technologist. Radiation optimization: All CT scans at this facility use at least one of these dose optimization techniques: automated exposure control; mA and/or kV adjustment per patient size (includes targeted exams where dose is matched to clinical indication); or iterative reconstruction. Contrast material: OMNIPAQUE 350; Contrast volume: 100 ml; Contrast route: INTRAVENOUS (IV); COMPARISON: CT head thrombolytic [id number] 07/11/2024 9:58 AM RADIATION DOSE METRICS: Total DLP (mGy-cm): 1079.48 FINDINGS: ANTERIOR CIRCULATION: Right internal carotid artery: Intracranial segment is patent with no significant stenosis. No aneurysm. Right middle cerebral artery: No occlusion or significant stenosis. No aneurysm. Right anterior cerebral artery: No occlusion or significant stenosis. No aneurysm. Left internal carotid artery: Intracranial segment is patent with no significant stenosis. No aneurysm. Left middle cerebral artery: No occlusion or significant stenosis. No aneurysm. Left anterior cerebral artery: No occlusion or significant stenosis. No aneurysm. POSTERIOR CIRCULATION: Right vertebral artery: No occlusion or significant stenosis. No aneurysm. Left vertebral artery: No occlusion or significant stenosis. No aneurysm. Basilar artery: No occlusion or significant stenosis. No aneurysm. Right posterior cerebral artery: No occlusion or significant stenosis. No aneurysm. Left posterior cerebral artery: No occlusion or significant stenosis. No aneurysm. Brain: No definite mass, mass effect, or midline shift. Cerebral ventricles: No ventriculomegaly. Orbital cavities: The patient is post left cataract surgery. 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 Soft tissues: Unremarkable. PROCEDURE INFORMATION: Exam: CTA Neck With Contrast Exam date and time: 07/11/2024 10:00 AM Age: 54 years old Clinical indication: Stroke-like symptoms; Drowsines/somnolence and speech disturbance; Lt upper extremity weakness; Additional info: CVA TECHNIQUE: Imaging protocol: Computed tomographic angiography of the neck with contrast. Exam focused on the cervical segments of the vasculature. 3D rendering (Not supervised by radiologist): MIP and/or 3D reconstructed images were created by the technologist. Radiation optimization: All CT scans at this facility use at least one of these dose optimization techniques: automated exposure control; mA and/or kV adjustment per patient size (includes targeted exams where dose is matched to clinical indication); or iterative reconstruction. Contrast material: OMNIPAQUE 350; Contrast volume: 100 ml; Contrast route: INTRAVENOUS (IV); COMPARISON: CT cervical spin wo con* [id number] 09/25/2019 2:31 PM RADIATION DOSE METRICS: Total DLP (mGy-cm): 1079.48 FINDINGS: Right common carotid artery: No stenosis. No dissection or occlusion. Right internal carotid artery: No stenosis of the extracranial segment. No dissection or occlusion. Right external carotid artery: No occlusion or stenosis of the origin. Left common carotid artery: Calcific and soft atheromatous plaque is noted at the left carotid bulb. Left internal carotid artery: There is calcific atheromatous plaque at the origin of left internal carotid artery without significant stenosis. Left external carotid artery: No occlusion or stenosis of the origin. Right vertebral artery: There is notable calcific atheromatous disease and narrowing at the origin of the right vertebral artery which is otherwise patent along its course. Left vertebral artery: Heavy calcific atheromatous plaque and narrowing is noted in the origin of the left vertebral artery. Soft tissues: Normal. No significant soft tissue swelling. Bones/joints: The patient is post plate and screw fixation of the right clavicle. CT/CT angio headneck* [id number] IMPRESSION: No acute intracranial large vessel occlusion. IMPRESSION: No carotid stenosis. Calcific disease at the origins of the vertebral arteries. REFERENCES: NASCET CRITERIA. The degree of stenosis in the cervical segment of the internal carotid artery is based on NASCET criteria. Normal is no stenosis. Mild is less than 50% stenosis. Moderate is 50-69% stenosis. Severe is 70% to 99% stenosis. Total occlusion is no detectable patent lumen.
[2024-07-11] MEDS: iohexol 350 mg/mL 500 mL Btl (per mL) IV (10:09)
--- NOTE | 2024-07-11 10:14 | ED_ITS ---
HPI - Neuro Symptoms/Deficit 2 General: Chief Complaint: Neuro Symptoms/Deficit Stated Complaint: stroke like symptoms Time Seen by Provider: 07/11/24 09:55 Source: patient Mode of arrival: ambulatory Limitations: no limitations History of Present Illness: 54-year-old male states that last night at 6 PM he started having some slurred speech she states he also noticed he started having weakness in the left arm and a hard time grabbing items states he woke up this morning he is having hard time walking due to weakness in his left leg he states his speech is improved but still having weakness in his arm and leg. No history of stroke denies any headache Associated symptoms: Deny chest pain, headache(s), nausea or vomiting Related Data Home Medications ?Medication ?Instructions ?Recorded ?Confirmed aspirin 325 mg tablet 325 mg PO ONCE 03/05/1906/02 nitroglycerin 0.4 mg sublingual 0.4 mg sublingual Q5M PRN Chest 03/05/19 07/11/24 tablet (Nitrostat) Pain hydromorphone 4 mg tablet 4 mg PO .Q4-6H PRN Pain 10/1007/11/24 Previous Rx's ?Medication ?Instructions ?Recorded carvedilol 3.125 mg tablet 3.125 mg PO BID #60 tabs clopidogrel 75 mg tablet 75 mg PO DAILY #30 tabs 07/03 evolocumab 140 mg/mL subcutaneous 140 mg SUBCUT .every 14 days #2 mL 05/12/24 syringe (Repatha Syringe) finasteride 5 mg tablet 5 mg PO DAILY #30 tabs 05/12 fluticasone propionate 50 2 spray intranasal DAILY #16 grams 05/12/24 mcg/actuation nasal spray,suspension gabapentin 600 mg tablet 600 mg PO TID pain #90 tabs 05/12/24 icosapent ethyl 1 gram capsule 2 g (2 x 1 gram) PO BID #120 caps 05/12/24 (Vascepa) insulin degludec 100 unit/mL (3 See Rx Instructions SOLANO BCUT DAILY 05/12/24 mL) subcutaneous pen (Tresiba #45 mL FlexTouch U-100 insulin) insulin lispro 100 unit/mL See Rx Instructions SUBCUT TID #30 05/12/24 subcutaneous pen (Humalog KwikPen mL (U-100) Insulin) levalbuterol tartrate 45 2 inh inhalation Q6H #15 gra ms 05/12/24 mcg/actuation aerosol inhaler (Xopenex HFA) lisinopril 20 mg tablet 20 mg PO DAILY #30 tabs 07/03 metformin 500 mg tablet 500 mg PO DAILY #30 tabs 07/03 rosuvastatin 10 mg tablet 10 mg PO DAILY #30 tabs 07/03 tiotropium bromide 18 mcg capsule 1 cap inhalation VICKY LY #30 05/12/24 with inhalation device (Spiriva inhalations with HandiHaler) Allergies Allergy/AdvReac Type Severity Reaction Status Date / Time Penicillins AdvReac Severe ALGY-Rash Verified 05/12/24 13:01 Review of Systems 2 Const: Denies: fever(s), chills, body aches or change in appetite Eyes: Denies: blurry vision or eye discomfort ENMT: Denies: throat pain or dental pain Card: Denies: chest pain Resp: Denies: dyspnea GI: Denies: abdominal pain, nausea, vomiting or diarrhea Musc: Denies: neck pain or back pain Skin/Breast: Denies: rash Neuro: Reports: weakness in extremities and Slurred speech present; Denies: headache(s) PFSH ED 2 PFSH: Medical History Seasonal allergic rhinitis Allergy-induced asthma Urinary hesitancy Coronary artery disease DM type 1 (diabetes mellitus, type 1) Opioid contract exists Lumbar radiculitis senior living (current) use of opiate analgesic Diabetic neuropathy Chronic back pain Surgical History S/P shoulder surgery right S/P arterial stent 4x: 2009? Family History Father Diabetes Myocardial infarct Family/Other Myocardial infarct BOTH SIDES OF THE FAMILY Social History Smoking and tobacco/nicotine status: former use of tobacco/nicotine Second hand smoke exposure: No Alcohol intake: never Substance/Drug Use: never Adopted: No Caregiver/support person: No Lives independently: Yes Household members: spouse Marital status: Number of children: 2 service: No Current occupational status: disabled Do you think of yourself as: Straight/Heterosexual Current gender identity: Male NIH stroke score 2 NIHSS: Level Of Consciousness - 1a: 0 Level Of Consciousness Questions - 1b: Both Correct Level Of Consciousness Commands - 1c: Both Correct Best Gaze - 2: Normal Visual [place] - 3: No Visual Loss Facial Palsy - 4: N ormal Motor Arm Right - 5: No Drift Motor Arm Left - 5: Drift Motor Leg Right - 6: No Drift Motor Leg Left - 6: Drift Limb Ataxia - 7: Absent S ensory - 8: Normal Best Language - 9: No Aphasia Dysarthia - 10: Normal Extinction And Inattention - 11: 0 Score: Total Score: 2 Physical Exam 2 Const: COMMON NORMALS: patient oriented x3 HENMT: COMMON NORMALS: normocephalic and atraumatic HEAD & SCALP: n ormocephalic and atraumatic Eye: COMMON NORMALS: EOMs intact bilaterally and conjunctivae normal C ONJUNCTIVA: Yes conjunctivae normal OTHER: right eye viual jaramillo normal blind in left eye Neck/C-Spine: COMMON NORMALS: full ROM and supple Chest: COMMONS NORMALS: normal inspection of the chest Resp: COMMON NORMALS: normal respiratory effort, No retractions, No use of accessory muscles and clear to auscultation bilaterally AUSCULTATION: clear to auscultation bilaterally Cardio: COMMON NORMALS: regular rate, regular rhythm and No murmurs present (Cardio) RATE: regular rate RHYTHM: regular rhythm Extremity: COMMON NORMALS: normal to inspection and full ROM Neuro: COMMON NORMALS: patient oriented x3, moves all extremities and no focal motor deficits SPEECH: speech normal OTHER: weakness in left arm and leg Psych: COMMON NORMALS: mental status grossly normal, Normal thought process present and cooperative THOUGHT PROCESS: Normal thought process present Skin: COMMON NORMALS: no rashes or lesions noted and no wounds GENERAL SKIN EXAM: no rashes or lesions noted Course 2 Vital Signs: Vital signs: Vital Signs Pulse Rate 83 07/11/24 10:32 Respiratory Rate 13 07/11/24 10:32 Blood Pressure 145/117 07/11/24 10:32 Pulse Oximetry 99 07/11/24 10:32 Oxygen Delivery Me thod Room Air 07/11/24 10:32 [facility] - Neuro Symptoms/Deficit Medical Decision Making Patient presents here with symptoms of a CVA he is out of treatment window as his last known normal [address] head CTA here are normal spoke possible for admit for observation. Medical Records I reviewed the patient's medical records. Lab Data I reviewed the patient's lab results. 07/11/24 10:00 07/11/24 10:00 Radiology Impressions Chest X-Ray 07/11/24 09:54 IMPRESSION: No acute cardiopulmonary disease. Head CT 07/11/24 09:54 IMPRESSION: No acute intracranial process. ASSESSMENT: ASPECTS ([place] Stroke Program Early CT Score) is 10. ADDENDUM: 07/11/24 1021 THIS REPORT CONTAINS FINDINGS THAT MAY BE CRITICAL TO PATIENT CARE. The findings were verbally communicated via telephone conference with RAFFY FERREIRA at 10:19 AM CDT on 07/11/2024. The findings were acknowledged and understood. Head/Neck CTA 07/11/24 09:54 IMPRESSION: No acute intracranial large vessel occlusion. IMPRESSION: No carotid stenosis. Calcific disease at the origins of the vertebral arteries. REFERENCES: NASCET CRITERIA. The degree of stenosis in the cervical segment of the internal carotid artery is based on NASCET criteria. Normal is no stenosis. Mild is less than 50% stenosis. Moderate is 50-69% stenosis. Severe is 70% to 99% stenosis. Total occlusion is no detectable patent lumen. ADDENDUM: 07/11/24 1055 THIS REPORT CONTAINS FINDINGS THAT MAY BE CRITICAL TO PATIENT CARE. Final report received by RAFFY FERREIRA at 10:36 AM CDT on 07/11/2024. The findings were acknowledged and understood. Laboratory Results WBC 11.11 10^3/uL (3.29-11.43) 07/11/24 10:00 RBC 4.90 10^6/uL (3.85-5.65) 07/11/24 10:00 Hgb 12.80 g/dL (11.27-16.99) 07/11/24 10:00 Hct 41.3 % (37-53) 07/11/24 10:00 MCV 84.3 fl (82-101) 07/11/24 10:00 MCH 26.1 pg (27-33) L 07/11/24 10:00 MCHC 31.0 g/dL (30-55) 07/11/24 10:00 RDW 15.6 % (12.1-15.1) H 07/11/24 10:00 Plt Count 395 10^3/cmm (157-399) 07/11/24 10:00 MPV 9.8 fL (7.4-10.4) 07/11/24 10:00 Neut % (Auto) 53.0 % 07/11/24 10:00 Lymph % (Auto) 31.1 % 07/11/24 10:00 [place] % (Auto) 11.3 % 07/11/24 10:00 Eos % (Auto) 3.3 % 07/11/24 10:00 Baso % (Auto) 0.9 % 07/11/24 10:00 Neut # (Auto) 5.88 10^3/uL (1.8-7.7) 07/11/24 10:00 Lymph # (Auto) 3.5 10^3/uL (0.8-4.8) 07/11/24 10:00 [place] # (Auto) 1.3 10^3/uL (0.2-0.9) H 07/11/24 10:00 Eos # (Auto) 0.4 10^3/uL (0.0-0.8) 07/11/24 10:00 Baso # (Auto) 0.1 10^3/uL (0.0-0.1) 07/11/24 10:00 Nucleated RBC % (auto) 0 % 07/11/24 10:00 Nucleated RBCs # 0.0 /100WBC 07/11/24 10:00 PT 12.80 SECONDS (12.1-14.9) 07/11/24 10:00 INR 0.90 (0.8-1.2) 07/11/24 10:00 APTT 24.2 SECONDS (23.9-36.7) 07/11/24 10:00 Sodium 141 mmol/L (136-145) 07/11/24 10:00 Potassium 3.9 mmol/L (3.5-5.1) 07/11/24 10:00 Chloride 103 mmol/L (98-107) 07/11/24 10:00 Carbon Dioxide 28 mmol/L (22-29) 07/11/24 10:00 Anion Gap 13.9 (5-19) 07/11/24 10:00 BUN 11 mg/dL (6-20) 07/11/24 10:00 Creatinine 1.1 mg/dL (0.7-1.2) 07/11/24 10:00 GFR Calculation 69.5 mL/min (90-130) L 07/11/24 10:00 Glucose 63 mg/dL (65-115) L 07/11/24 10:00 POC Glucose 84 mg/dL (70-110) 07/11/24 10:14 Calculated Osmolality 289 mOsm/kg (285-295) 07/11/24 10:00 Calcium 9.7 mg/dL (8.5-10.5) 07/11/24 10:00 Total Bilirubin 0.5 mg/dL (0.15-1.2) 07/11/24 10:00 AST 19 U/L (0-40) 07/11/24 10:00 ALT 11 U/L (0-41) 07/11/24 10:00 Alkaline Phosphatase 162 U/L (40-130) H 07/11/24 10:00 Total Protein 7.9 g/dL (6.6-8.7) 07/11/24 10:00 Albumin 4.4 g/dL (3.5-5.2) 07/11/24 10:00 Globulin 3.5 g/dL (1.3-4.6) 07/11/24 10:00 Urine Color Yellow (Yellow) 07/11/24 10:32 Urine Appearance Clear (CLEAR) 07/11/24 10:32 Urine pH 6.5 (5-7) 07/11/24 10:32 Ur Specific [place] 1.059 (1.005-1.030) H 07/11/24 10:32 Urine Protein Neg (Negative) 07/11/24 10:32 Urine Glucose (UA) 2+ (Normal) H 07/11/24 10:32 Urine Ketones Negative (Negative) 07/11/24 10:32 Urine Blood Neg (Negative) 07/11/24 10:32 Urine Nitrate Negative (Negative) 07/11/24 10:32 Urine Bilirubin Neg (Negative) 07/11/24 10:32 Urine Urobilinogen 1 mg/dL (Negative) H 07/11/24 10:32 Ur Leukocyte Esterase Negative (Negative) 07/11/24 10:32 Urine RBC 0-2 /hpf (0-2) 07/11/24 10:32 Urine WBC 0-5 /hpf (0-5) 07/11/24 10:32 Ur Squamous Epith Cells 0-5 /hpf (0-5) 07/11/24 10:32 Amorphous Sediment Not Reportable 07/11/24 10:32 Urine Bacteria None seen /hpf (NONE) 07/11/24 10:32 Hyaline Casts 0.81 /lpf 07/11/24 10:32 Urine Opiates Screen Positive ng/mL (Negative) H 07/11/24 10:32 Ur Barbiturates Screen Negative ng/mL (Negative) 07/11/24 10:32 Ur Phencyclidine Scrn Negative ng/mL (Negative) 07/11/24 10:32 Ur Amphetamines Screen Negative ng/mL (Negative) 07/11/24 10:32 U Benzodiazepines Scrn Negative ng/mL (Negative) 07/11/24 10:32 Urine Cocaine Screen Negative ng/mL (Negative) 07/11/24 10:32 U Marijuana (THC) Screen Negative ng/mL (Negative) 07/11/24 10:32 All radiology interpretation(s) finalized by discharge Discharge Plan Discharge Patient Disposition: Placed in Observation Clinical Impression: Cerebrovascular accident Coding Level of Care Code ED Spanish Lecturer for Preeti Salmon
[2024-07-11 10:17] LABS: Basophils # 0.1 10^3/uL (0.0-0.1); Basophils % 0.9 %; Eosinophils # 0.4 10^3/uL (0.0-0.8); Eosinophils % 3.3 %; Hematocrit 41.3 % (37-53); Lymphocytes # 3.5 10^3/uL (0.8-4.8); Lymphocytes % 31.1 %; Mean Corpuscular Hemoglobin 26.1 pg (27-33); Mean Corpuscular Volume 84.3 fl (82-101); Mean Platelet Volume 9.8 fL (7.4-10.4); Monocytes # 1.3 10^3/uL (0.2-0.9); Monocytes % 11.3 %; Neutrophils # 5.88 10^3/uL (1.8-7.7); Nucleated Red Blood Cells % 0 %; Platelet Count 395 10^3/cmm (157-399); Red Cell Distribution Width 15.6 % (12.1-15.1); White Blood Count 11.11 10^3/uL (3.29-11.43)
[2024-07-11 10:19] LABS: Glucose Point of Care 84 mg/dL (70-110)
[2024-07-11 10:23] LABS: Partial Thromboplastin Time 24.2 SECONDS (23.9-36.7)
[2024-07-11 10:26] LABS: Alanine Aminotransferase 11 U/L (0-41); Albumin Level 4.4 g/dL (3.5-5.2); Alkaline Phosphatase 162 U/L (40-130); Anion Gap 13.9 (5-19); Aspartate Amino Transferase 19 U/L (0-40); Blood Urea Nitrogen 11 mg/dL (6-20); Calcium 9.7 mg/dL (8.5-10.5); Carbon Dioxide 28 mmol/L (22-29); Chloride 103 mmol/L (98-107); Creatinine Clr Calc Pharmacy 88.0943; Globulin 3.5 g/dL (1.3-4.6); Glomerular Filtration Rate 69.5 mL/min (90-130); Glucose 63 mg/dL (65-115); Osmolality Calculated 289 mOsm/kg (285-295); Potassium 3.9 mmol/L (3.5-5.1); Sodium 141 mmol/L (136-145); Total Bilirubin 0.5 mg/dL (0.15-1.2); Total Protein 7.9 g/dL (6.6-8.7)
[2024-07-11] MEDS: aspirin 81 mg Chew Tablet 324 MG PO (10:28)
[2024-07-11 10:32] VITALS: BP 145/117; PULSE 83; RESP 13; O2SAT 99
[2024-07-11 10:55] LABS: Bacteria Urine None Seen /hpf; Hyaline Casts Urine 0.81 /lpf; RBC Urine 0-2 /hpf (0-2); Squamous Epithelial Cell Urine 0-5 /hpf (0-5); WBC Urine 0-5 /hpf (0-5)
[2024-07-11 10:56] LABS: Urine Appearance Clear (CLEAR); Urine Color Yellow (Yellow); pH Urine 6.5 (5-7)
[2024-07-11 10:57] LABS: Add Urine Culture? No; Add Urine Microscopic? YES; Amphetamines Screen Urine Negative (Negative); Barbiturates Screen Urine Negative (Negative); Benzodiazepines Screen Urine Negative (Negative); Bilirubin Urine Neg (Negative); Blood Urine Neg (Negative); Cocaine Screen Urine Negative (Negative); Glucose Urine UA 2+ (Normal); Ketones Urine Negative (Negative); Leukocyte Esterase Urine Negative (Negative); Nitrate Urine Negative (Negative); Opiate Screen Urine Positive (Negative); PCP Screen Urine Negative (Negative); Protein Urine Neg (Negative); Specific Gravity, Urine 1.059 (1.005-1.030); THC Screen Urine Negative (Negative); Urobilinogen Urine 1 mg/dL (Negative)
[2024-07-11 11:17] VITALS: BP 163/82; PULSE 72; O2SAT 97
[2024-07-11 12:09] VITALS: BP 148/84; PULSE 66; RESP 13; O2SAT 99
[2024-07-11 12:40] VITALS: BP 144/88; PULSE 71; RESP 22; O2SAT 99
[2024-07-11 12:57] VITALS: BP 144/88; PULSE 67; O2SAT 97
[2024-07-11 13:14] VITALS: BMI 30.2
--- NOTE | 2024-07-11 13:58 | PM.HP ---
Providers/Chief Complaint Admitting Physician: Tashia Stuart MD Primary Care Provider: Belinda Logan, [employer] Chief Complaint: stroke like symptoms History of Present Illness Neal Crisostomo is a 54 year old male with typw 1 DM, HTN recetly started on Lisnopril, dyslipidemia who is presneting with left side weakness and slurred speeach. Patient first noted symptoms around 6pm yesterday with slurred speech which he attributed to hypoglycemia, didnt make much of his symptoms and went o bed. When he awoke the next morning, he noticed his left leg to be weaker compared to right and left arm to be weaker. By the time he came to ER, his LUE was getting stronger but LLE continued to be weak. Slurred speech is improving. He was hypoglycemic with BS 65 initially on arrival to floors, but this improved with oral intake. CT head and CTA without any major vessel occlusion Review of Systems General: Reports: 10 or more systems reviewed and unremarkable except in HPI and below Const: Denies: fever(s), chills or body aches Eyes: Denies: change in vision, blurry vision or photophobia ENMT: Reports: hoarseness; Denies: throat pain, enlarged tonsils, odynophagia or nasal congestion Card: Denies: chest pain, palpitations, irregular heart rhythm, edema, swelling of feet/ankles, lightheadedness, pre-syncope, dyspnea on exertion or orthopnea Resp: Denies: dyspnea, productive cough, non-productive cough, wheezing, stridor, pain on inspiration, change in phlegm color, hemoptysis or chest congestion GI: Denies: abdominal pain, nausea, vomiting, hematemesis, coffee ground emesis, dysphagia, heartburn, diarrhea, constipation, GI cramping, change in stool character, hematochezia or melena : Denies: flank pain, dysuria, urinary frequency, urinary urgency, urinary hesitancy or hematuria Musc: Denies: neck pain, back pain, extremity pain, joint swelling, joint warmth or deformity Neuro: Denies: headache(s), numbness in extremities, weakness in extremities, sensory changes, difficulty walking, frequent falls, dizziness, vertigo, behavioral changes, Slurred speech present or seizure-like activity Psych: Denies: anxiety, depression, suicidal ideation or homicidal ideation Endo: Denies: polyuria, polydipsia, tired all the time, cold intolerance or hot flashes Chang/Lymph: Denies: easy bruising or easy bleeding Medications/Allergies Home Medications ?Medication ?Instructions ?Recorded ?Confirmed ?Last Taken ?Type aspirin 325 mg tablet 325 mg PO ONCE 03/05/19 07/11/24 07/11/24 History nitroglycerin 0.4 mg sublingual 0.4 mg sublingual Q5M PRN Chest 03/05/19 07/11/24 Unknown History tablet (Nitrostat) Pain hydromorphone 4 mg tablet 4 mg PO .Q4-6H PRN Pain 10/30/22 07/11/24 07/11/24 History carvedilol 3.125 mg tablet 3.125 mg PO BID #60 tabs 05/12/24 07/11/24 07/11/24 Rx clopidogrel 75 mg tablet 75 mg PO DAILY #30 tabs 05/12/24 07/11/24 07/11/24 Rx evolocumab 140 mg/mL subcutaneous 140 mg SUBCUT .every 14 days #2 mL 05/12/24 07/11/24 Unknown Rx syringe (Repatha Syringe) finasteride 5 mg tablet 5 mg PO DAILY #30 tabs 05/12/24 07/11/24 07/11/24 Rx fluticasone propionate 50 2 spray intranasal DAILY #16 grams 05/12/24 07/11/24 Unknown Rx mcg/actuation nasal spray,suspension gabapentin 600 mg tablet 600 mg PO TID pain #90 tabs 05/12/24 07/11/24 07/11/24 Rx icosapent ethyl 1 gram capsule 2 g (2 x 1 gram) PO BID #120 caps 05/12/24 07/11/24 07/11/24 Rx (Vascepa) insulin degludec 100 unit/mL (3 See Rx Instructions SUBCUT DAILY 05/12/24 07/11/24 07/11/24 Rx mL) subcutaneous pen (Tresiba #45 mL FlexTouch U-100 insulin) insulin lispro 100 unit/mL See Rx Instructions SUBCUT TID #30 05/12/24 07/11/24 07/11/24 Rx subcutaneous pen (Humalog KwikPen mL (U-100) Insulin) levalbuterol tartrate 45 2 inh inhalation Q6H #15 grams 05/12/24 07/11/24 Unknown Rx mcg/actuation aerosol inhaler (Xopenex HFA) lisinopril 20 mg tablet 20 mg PO DAILY #30 tabs 05/12/24 07/11/24 07/11/24 Rx metformin 500 mg tablet 500 mg PO DAILY #30 tabs 05/12/24 07/11/24 07/11/24 Rx rosuvastatin 10 mg tablet 10 mg PO DAILY #30 tabs 05/12/24 07/11/24 07/11/24 Rx tiotropium bromide 18 mcg capsule 1 cap inhalation DAILY #30 05/12/24 07/11/24 Unknown Rx with inhalation device (Spiriva inhalations with HandiHaler) Allergies Allergy/AdvReac Type Severity Reaction Status Date / Time Penicillins AdvReac Severe ALGY-Rash Verified 05/12/24 13:01 PFSH Acute PFSH: Medical History Seasonal allergic rhinitis Allergy-induced asthma Urinary hesitancy Coronary artery disease DM type 1 (diabetes mellitus, type 1) Opioid contract exists Lumbar radiculitis skilled nursing (current) use of opiate analgesic Diabetic neuropathy Chronic back pain Surgical History S/P shoulder surgery right S/P arterial stent 4x: 2009? Family History Father Diabetes Myocardial infarct Family/Other Myocardial infarct BOTH SIDES OF THE FAMILY Social History Smoking and tobacco/nicotine status: former use of tobacco/nicotine Second hand smoke exposure: No Alcohol intake: never Substance/Drug Use: never Adopted: No Caregiver/support person: No Lives independently: Yes Household members: spouse Marital status: Number of children: 2 service: No Current occupational status: disabled Do you think of yourself as: Straight/Heterosexual Current gender identity: Male Vitals/I&O/Wt Last Vital Signs Pulse 67 07/11/24 12:57 Resp 22 H 07/11/24 12:40 BP 144/88 07/11/24 12:57 Pulse Ox 97 07/11/24 12:57 O2 Del Method Room Air 07/11/24 13:14 Weight last 48 hrs Weight 95.708 kg Weight 95.708 kg Physical Exam Narrative: General: No acute distress, AO x3 HEENT: PERRLA, pupils bilaterally equal and reactive, pallors not present Chest: Normal vesicular breath sounds, no added sounds, equal good air entry bilaterally CVS: S1-S2 regular, no murmurs, no tachycardia, no gallops, no rubs Abdomen: Soft, nontender, no organomegaly, bowel sounds present Neuro: LLE 4/5, LUE 4/5 , no facial asymmetr noted at this time Data 07/11/24 10:00 07/11/24 10:00 Other Labs: Radiology Impressions Chest X-Ray 07/11/24 09:54 IMPRESSION: No acute cardiopulmonary disease. Head CT 07/11/24 09:54 IMPRESSION: No acute intracranial process. ASSESSMENT: ASPECTS (Anderson Stroke Program Early CT Score) is 10. ADDENDUM: 07/11/24 1021 THIS REPORT CONTAINS FINDINGS THAT MAY BE CRITICAL TO PATIENT CARE. The findings were verbally communicated via telephone conference with RAFFY FERREIRA at 10:19 AM CDT on 07/11/2024. The findings were acknowledged and understood. Head/Neck CTA 07/11/24 09:54 IMPRESSION: No acute intracranial large vessel occlusion. IMPRESSION: No carotid stenosis. Calcific disease at the origins of the vertebral arteries. REFERENCES: NASCET CRITERIA. The degree of stenosis in the cervical segment of the internal carotid artery is based on NASCET criteria. Normal is no stenosis. Mild is less than 50% stenosis. Moderate is 50-69% stenosis. Severe is 70% to 99% stenosis. Total occlusion is no detectable patent lumen. ADDENDUM: 07/11/24 1055 THIS REPORT CONTAINS FINDINGS THAT MAY BE CRITICAL TO PATIENT CARE. Final report received by RAFFY FERREIRA at 10:36 AM CDT on 07/11/2024. The findings were acknowledged and understood. Laboratory Results WBC 11.11 10^3/uL (3.29-11.43) 07/11/24 10:00 RBC 4.90 10^6/uL (3.85-5.65) 07/11/24 10:00 Hgb 12.80 g/dL (11.27-16.99) 07/11/24 10:00 Hct 41.3 % (37-53) 07/11/24 10:00 MCV 84.3 fl (82-101) 07/11/24 10:00 MCH 26.1 pg (27-33) L 07/11/24 10:00 MCHC 31.0 g/dL (30-55) 07/11/24 10:00 RDW 15.6 % (12.1-15.1) H 07/11/24 10:00 Plt Count 395 10^3/cmm (157-399) 07/11/24 10:00 MPV 9.8 fL (7.4-10.4) 07/11/24 10:00 Neut % (Auto) 53.0 % 07/11/24 10:00 Lymph % (Auto) 31.1 % 07/11/24 10:00 Whitman % (Auto) 11.3 % 07/11/24 10:00 Eos % (Auto) 3.3 % 07/11/24 10:00 Baso % (Auto) 0.9 % 07/11/24 10:00 Neut # (Auto) 5.88 10^3/uL (1.8-7.7) 07/11/24 10:00 Lymph # (Auto) 3.5 10^3/uL (0.8-4.8) 07/11/24 10:00 Whitman # (Auto) 1.3 10^3/uL (0.2-0.9) H 07/11/24 10:00 Eos # (Auto) 0.4 10^3/uL (0.0-0.8) 07/11/24 10:00 Baso # (Auto) 0.1 10^3/uL (0.0-0.1) 07/11/24 10:00 Nucleated RBC % (auto) 0 % 07/11/24 10:00 Nucleated RBCs # 0.0 /100WBC 07/11/24 10:00 PT 12.80 SECONDS (12.1-14.9) 07/11/24 10:00 INR 0.90 (0.8-1.2) 07/11/24 10:00 APTT 24.2 SECONDS (23.9-36.7) 07/11/24 10:00 Sodium 141 mmol/L (136-145) 07/11/24 10:00 Potassium 3.9 mmol/L (3.5-5.1) 07/11/24 10:00 Chloride 103 mmol/L (98-107) 07/11/24 10:00 Carbon Dioxide 28 mmol/L (22-29) 07/11/24 10:00 Anion Gap 13.9 (5-19) 07/11/24 10:00 BUN 11 mg/dL (6-20) 07/11/24 10:00 Creatinine 1.1 mg/dL (0.7-1.2) 07/11/24 10:00 GFR Calculation 69.5 mL/min (90-130) L 07/11/24 10:00 Glucose 63 mg/dL (65-115) L 07/11/24 10:00 POC Glucose 356 mg/dL (70-110) H 07/11/24 16:04 Calculated Osmolality 289 mOsm/kg (285-295) 07/11/24 10:00 Calcium 9.7 mg/dL (8.5-10.5) 07/11/24 10:00 Total Bilirubin 0.5 mg/dL (0.15-1.2) 07/11/24 10:00 AST 19 U/L (0-40) 07/11/24 10:00 ALT 11 U/L (0-41) 07/11/24 10:00 Alkaline Phosphatase 162 U/L (40-130) H 07/11/24 10:00 Total Protein 7.9 g/dL (6.6-8.7) 07/11/24 10:00 Albumin 4.4 g/dL (3.5-5.2) 07/11/24 10:00 Globulin 3.5 g/dL (1.3-4.6) 07/11/24 10:00 Urine Color Yellow (Yellow) 07/11/24 10:32 Urine Appearance Clear (CLEAR) 07/11/24 10:32 Urine pH 6.5 (5-7) 07/11/24 10:32 Ur Specific Chappell 1.059 (1.005-1.030) H 07/11/24 10:32 Urine Protein Neg (Negative) 07/11/24 10:32 Urine Glucose (UA) 2+ (Normal) H 07/11/24 10:32 Urine Ketones Negative (Negative) 07/11/24 10:32 Urine Blood Neg (Negative) 07/11/24 10:32 Urine Nitrate Negative (Negative) 07/11/24 10:32 Urine Bilirubin Neg (Negative) 07/11/24 10:32 Urine Urobilinogen 1 mg/dL (Negative) H 07/11/24 10:32 Ur Leukocyte Esterase Negative (Negative) 07/11/24 10:32 Urine RBC 0-2 /hpf (0-2) 07/11/24 10:32 Urine WBC 0-5 /hpf (0-5) 07/11/24 10:32 Ur Squamous Epith Cells 0-5 /hpf (0-5) 07/11/24 10:32 Amorphous Sediment Not Reportable 07/11/24 10:32 Urine Bacteria None seen /hpf (NONE) 07/11/24 10:32 Hyaline Casts 0.81 /lpf 07/11/24 10:32 Urine Opiates Screen Positive ng/mL (Negative) H 07/11/24 10:32 Ur Barbiturates Screen Negative ng/mL (Negative) 07/11/24 10:32 Ur Phencyclidine Scrn Negative ng/mL (Negative) 07/11/24 10:32 Ur Amphetamines Screen Negative ng/mL (Negative) 07/11/24 10:32 U Benzodiazepines Scrn Negative ng/mL (Negative) 07/11/24 10:32 Urine Cocaine Screen Negative ng/mL (Negative) 07/11/24 10:32 U Marijuana (THC) Screen Negative ng/mL (Negative) 07/11/24 10:32 A&P Assessment and plan (1) Stroke: patient admitted with signs and symptoms of CVA with left sided weakness residual at this time He is not a TNKase candidate as out of window CT head and CTA head and neck without major vessel occlusion Recommended telemetry montioring Serial neuro checks and neuro observation To obtain echocardiogram and MRI brain ASA 81mg daily, Plavix 75 mg daily to continue Continue carvedilol Hold lisinopril to allow permissive HTN PT/OT/ST assessments Glycemic control with ISS Atorvastatin 40mg po daily DVT ppx: low risk Full code PDMP PDMP Reviewed: Not Reviewed Attestations Medical Necessity Statement*: less than 2 midnight stay anticipated Coding Level of Care Code Acute Code for g Fwd Diagnoses Stroke I63.9
[2024-07-11 14:18] LABS: Glucose Point of Care 69 mg/dL (70-110)
[2024-07-11] MEDS: gabapentin 300 mg Capsule 600 MG PO (15:27)
[2024-07-11 16:22] VITALS: BP 152/79; PULSE 73; RESP 15; TEMP 36.7; O2SAT 97
[2024-07-11 16:26] LABS: Glucose Point of Care 356 mg/dL (70-110)
[2024-07-11] MEDS: insulin lispro 100 unit/1 mL SUBCUT (16:55)
--- NOTE | 2024-07-11 17:30 | PC.NURSE ---
Patient stated he did not want to wait for his MRI. Physician had a one on one discussion with patient about needing to stay and the risks of leaving without proper work up for stroke and monitoring. Patient stated understanding and wanted to leave anyway. AMA form presented after having the discussion and patient signed as well as physician and placed in chart. Patient's IV removed and patient provided STROKE book and helped out without incident. Patient Alert and oriented at the time of discharge with mild deficits from stroke including mild weakness to left had zinc plate grainer and left leg gait.
== END 2024-07-11 17:34 | disposition left against medical advice (07) ==
LOC: ER 10:59 → MEDSURG 16:42
PROVIDERS: Admitting Provider Student in an Organized Health Care Education/Training Program; Emergency Provider Emergency Medicine; PCP Nurse Practitioner; Visit Provider Student in an Organized Health Care Education/Training Program
DX: I63.9 Cerebral infarction, unspecified (principal); R29.702 NIHSS score 2; Z87.891 Personal history of nicotine dependence; I25.10 Atherosclerotic heart disease of native coronary artery without angina pectoris; E10.40 Type 1 diabetes mellitus with diabetic neuropathy, unspecified; Z95.5 Presence of coronary angioplasty implant and graft; I10 Essential (primary) hypertension; E78.5 Hyperlipidemia, unspecified; Z79.82 Long term (current) use of aspirin; Z53.29 Procedure and treatment not carried out because of patient's decision for other reasons; Z79.4 Long term (current) use of insulin
CPT/HCPCS: 36415; 36416; 70450; 70496; 70498; 71045; 80053; 80306; 81001; 82962; 85025; 85610; 85730; 92523; 92610; 93005; 96372; 97161; 97165; G0378; J1815; J9999

== ENCOUNTER 2024-07-27 13:20 | Outpatient (CLI) | payer MEDICARE, MEDICAID, SELFPAY ==
--- NOTE | 2024-07-27 13:26 | MR_ITS ---
WS: [id number] MRI BRAIN WITHOUT CONTRAST HISTORY: STROKE COMPARISON: 08/14/2006, CT head 07/11/2024 TECHNIQUE: Diffusion imaging, multiplanar T1, T2 and FLAIR imaging obtained. Focal diffusion abnormality involving the RIGHT frontal parietal junction. No additional diffusion abnormalities. There is a susceptibility artifact in the more anterior RIGHT frontal lobe cortex which is probably from prior trauma. Mild cerebral volume loss. There are a few scattered T2 and FLAIR signal hyperintensities throughout the brain. Ventricles and extra-axial spaces are normal. No inferior displacement of cerebellar tonsils. The sella turcica and pituitary gland are unremarkable. Dural venous sinuses and elim ira of Bryant demonstrate no abnormality on this unenhanced studies. Paranasal sinuses: Clear. Mastoid air cells: Normal. Calvarium and scalp: Healed depressed fracture involving the RIGHT temporal bone. MR/MR head wo con* [id number] IMPRESSION: 1. Positive for acute to subacute RIGHT frontoparietal infarct. 2. Single hemosiderin deposit in the RIGHT frontal lobe cortex. Probably from prior trauma. 3. Depressed RIGHT temporal bone fracture, remote and healed. Close to the hem osiderin deposition. 4. Mild atrophy and mild small vessel disease.
== END 2024-07-27 13:21 | disposition home or self-care (01) ==
LOC: RAD 13:21
PROVIDERS: PCP Nurse Practitioner; Visit Provider Student in an Organized Health Care Education/Training Program
DX: I63.89 Other cerebral infarction (principal); R93.0 Abnormal findings on diagnostic imaging of skull and head, not elsewhere classified; G31.89 Other specified degenerative diseases of nervous system; Z87.81 Personal history of (healed) traumatic fracture
CPT/HCPCS: 70551

== ENCOUNTER → 2024-08-12 14:03 | Outpatient (BNVA) | payer MEDICARE, MEDICAID, SELFPAY | PROVIDERS: PCP Nurse Practitioner; Visit Provider Nurse Practitioner | DX: E11.9 Type 2 diabetes mellitus without complications (principal); E55.9 Vitamin D deficiency, unspecified | CPT/HCPCS: 80053; 82306; 83036 ==

== ENCOUNTER 2024-09-02 14:42 | Outpatient (CLI) | payer MEDICARE, MEDICAID, SELFPAY ==
--- NOTE | 2024-09-02 15:00 | USCV_ITS ---
AndressaNeal burton Age: 54 Gender: M : 1970 Exam Date: 09/02/2024 15:04 Ordering Phys: Tashia Stuart MD Technologist: [place] [facility] [place]: cp irregular heart beat BP: 140 / 80 HR: 67 Rhythm: Sinus Technical Quality: Adequate MEASUREMENTS (Male / Female) Normal Values 2D ECHO LV Diastolic Diameter PLAX 5.0 cm 4.2 - 5.9 / 3.9 - 5.3 cm IVS Diastolic Thickness 1.3 cm 0.6 - 1.0 / 0.6 - 0.9 cm IVS Systolic Thickness 1.9 cm LVPW Diastolic Thickness 1.3 cm 0.6 - 1.0 / 0.6 - 0.9 cm LVPW Systolic Thickness 1.9 cm LVOT Diameter 2.0 cm LV Ejection Fraction 2D Teich 40.8 % LV Ejection Fraction MOD 4C 38.9 % LV Ejection Fraction MOD 2C 47.4 % LV Ejection Fraction 2C AL 47.9 % LA Diameter 3.9 cm RA Systolic Volume 4C AL 32.5 ml RA Systolic Volume 4C MOD 29.6 ml LA Sys Volume AL 56.0 cm cubed LA Sys Volume Index AL 25.6 cm cubed/m squared Aorta at Sinotubular Diameter 2.7 cm M-MODE LA Ao Ratio MM 1.3 AV Cusp Separation MM 1.9 cm DOPPLER AV Peak Velocity 132.0 cm/s LVOT Peak Velocity 105.0 cm/s AV Area Cont Eq vti 2.6 cm squared AV Area Cont Eq pk 2.6 cm squared MV Peak Velocity 102.0 cm/s MV Area PHT 3.5 cm squared Mitral E to A Ratio 0.8 TR Peak Velocity 166.0 cm/s TR Peak Gradient 11.0 mmHg TV Peak E Velocity 93.0 cm/s PV Peak Velocity 149.0 cm/s FINDINGS Left Ventricle Left ventricle is normal in size. LV systolic function is mildly reduced with EF of 45-50%. Mild global hypokinesis. Right Ventricle Normal in size and function Right Atrium Normal in size Left Atrium Normal in size Mitral Valve Structurally normal mitral valve. Mild mitral regurgitation Aortic Valve Structurally normal aortic valve. No significant stenosis or regurgitation. Tricuspid Valve Insufficient TR jet to evaluate RVSP. Pulmonic Valve Not well visualized Pericardium Normal Aorta Normal in size IVC Not well visualized CONCLUSIONS LV systolic function is mildly reduced with EF of 45-50%. Mild mitral regurgitation Ammon Godinez MD (Electronically Signed) Final Date: 18 September 2024 11:05 S
== END 2024-09-02 14:43 | disposition home or self-care (01) ==
PROVIDERS: PCP Nurse Practitioner; Visit Provider Student in an Organized Health Care Education/Training Program
DX: I63.9 Cerebral infarction, unspecified (principal); R93.1 Abnormal findings on diagnostic imaging of heart and coronary circulation; I51.89 Other ill-defined heart diseases; I34.0 Nonrheumatic mitral (valve) insufficiency
CPT/HCPCS: 93306

== ENCOUNTER → 2024-11-23 15:10 | Outpatient (BNVA) | payer MEDICARE, MEDICAID, SELFPAY | PROVIDERS: PCP Nurse Practitioner; Visit Provider Nurse Practitioner | DX: E10.65 Type 1 diabetes mellitus with hyperglycemia (principal) | CPT/HCPCS: 80053; 80061; 82043; 82607; 83036 ==

== ENCOUNTER → 2025-01-12 16:23 | Outpatient (BNVA) | payer MEDICARE, MEDICAID, SELFPAY | PROVIDERS: PCP Nurse Practitioner; Referring Provider Nurse Practitioner; Visit Provider Internal Medicine Cardiovascular Disease | DX: R07.89 Other chest pain (principal); I49.3 Ventricular premature depolarization; I10 Essential (primary) hypertension; R00.1 Bradycardia, unspecified; I25.10 Atherosclerotic heart disease of native coronary artery without angina pectoris; R58 Hemorrhage, not elsewhere classified | CPT/HCPCS: 36415; 80048; 85025; 85610; 93005 ==

== ENCOUNTER → 2025-02-15 13:36 | Outpatient (BNVA) | payer MEDICARE, MEDICAID, SELFPAY | PROVIDERS: PCP Nurse Practitioner; Visit Provider Nurse Practitioner | DX: E10.65 Type 1 diabetes mellitus with hyperglycemia (principal); Z79.4 Long term (current) use of insulin | CPT/HCPCS: 80053; 83036 ==

== ENCOUNTER 2025-02-18 08:52 | Outpatient (CLI) | payer MEDICARE, MEDICAID, SELFPAY ==
[2025-02-18] VITALS (19 sets, daily range): BP systolic 125–179; BP diastolic 64–92; PULSE 59–81; RESP 12–21; TEMP 36.6–37.1; O2SAT 95–100; BMI 30.5
--- NOTE | 2025-02-18 09:00 | XACV_ITS ---
Exam Room: 2 Ht: 178 cm Wt: 97 kg BSA: 2.21 m2 Gender: Male : 1970 Any Known Allergies: Penicillins Exam Priority: Routine Procedure(s): Procedure Description: Diagnostic procedure Procedure Description: PCI procedure Procedure Description: Left Heart Catheterization Procedure Description: Left ventriculography Procedure Description: Drug Eluting Coronary Stent Procedure Description: PTCA Procedure Description: Miscellaneous Procedure Description: Angio-Seal Procedure Description: ACT Procedure Description: Coronary Angiography Jose Cruz REID; Diagnostic Cath Status: Elective Diagnostic Findings * Left Main has no disease. * Distal Left Anterior Descending: severe 90% stenosis, NJ: 3 flow. * Proximal Right Coronary Artery to Distal Right Coronary Artery: total occlusion, chronic total occlusion, NJ: 0 flow. * Proximal Circumflex to Mid Circumflex: severe 90% stenosis, NJ: 3 flow. * Mid Circumflex: severe 90% stenosis, NJ: 3 flow. * Coronary angiography shows right dominance. PCI Status: Elective PCI Indication: New Onset Angina <= 2 months Interventional Findings * Distal Left Anterior Descendin% stenosis treated with a AB MINI TREK 2.00X20 RX BALLOON. 20% residual stenosis, NJ: 3 flow. * Proximal Circumflex to Mid Circumflex: 90% stenosis treated with a MDT NC EUPHORA RX 3.01W16YR BALLOON, MDT NC EUPHORA RX 3.78N39FN BALLOON, MDT R JOSE DANIEL 3.5X12 ALYSA, and MDT NC EUPHORA RX 4.51G61MC BALLOON. 0% residual stenosis, NJ: 3 flow. * Mid Circumflex: 90% stenosis treated with a MDT NC EUPHORA RX 3.83D63ZA BALLOON, MDT R JOSE DANIEL 3.5X12 ALYSA, and MDT NC EUPHORA RX 4.23J29UL BALLOON. 0% residual stenosis, NJ: 3 flow. Conclusions 1. There is total occlusion coronary artery disease with three vessel disease. 2. Mild left ventricular systolic dysfunction. Ejection fraction of 40%. 3. Distal Left Anterior Descending was treated with a Balloon. 4. Proximal Circumflex to Mid Circumflex was treated with a Balloon, Balloon, Drug Eluting Stent, and Balloon. 5. Mid Circumflex was treated with a Balloon, Drug Eluting Stent, and Balloon. 6. PCI to proximal and mid left circumflex for highly calcified pauma artery in the proximal segment and severe in-stent restenosis in the mid segment.Both lesions were pre and postdilated with compliant and noncompliant balloon. Proximal stent was also postdilated with noncompliant 4.0 x 8 mm balloon at high inflation of 22 mm, no wasting was observed. Distal stent was postdilated with 3.5 and followed by a 4.0 x 8 mm balloon at nominal inflation without any wasting. Graphic result was noted no dissection noted no complication noted.Balloon angioplasty of the distal LAD was performed with excellent angiographic result 90% lesion was reduced to 20%. Since it was distal lesion therefore we accepted the result of the LAD. Recommendations * 1-Return to inpatient for close monitoring and routine cath care 2-Risk factor modification for secondary prevention 3-Statin and aspirin 81 mg life-long, if tolerated 4-Continue Plavix 75mg p.o. daily for at least one year. We will assess at the end of one year again to continue if further or not 5-Continue optimal medical management 6-Follow up with Dr. Billingsley in four weeks and your primary care in 10 days. Diagnostic RX Recommendation: PCI w/o planned CABG Ventriculography Ejection Fraction: 40.0 % Pressures Phase:Rest AO : 93 / 72 ( 81 ) @ 11:13:00 AM 134 / 63 ( 100 ) @ 11:23:00 AM 105 / 63 ( 81 ) @ 11:52:00 AM 125 / 64 ( 89 ) @ 12:13:00 PM 138 / 67 ( 95 ) @ 12:27:00 PM 141 / 53 ( 86 ) @ 12:27:00 PM LV : 133 / -10 / 5 @ 12:26:00 PM 135 / -14 / 5 @ 12:27:00 PM 136 / -14 / 5 @ 12:27:00 PM Valves Phase:DefaultPhase AV : 0.0 @ 12:38:15 PM AV Mean Gradient: 0.0 @ 12:38:15 PM Clinical Evaluation EBL: 5mL-10mL Procedural Details Pre-Procedure Time Out. Identified patient by full name and date of as verbalized by the patient/guarantor. Does the consent match the physician's order: Yes. Accurate & Complete Informed Consent: Yes. Inpatient/Outpatient History & Physical on Chart: Yes. If H&P is completed, is and addenduem needed: No; If yes, is the addendum complete: N/A. Visualize and Verify Site with Patient/Guarantor: N/A. Relevant Radiology Images available: Yes. Pre-op teaching completed and patient verbalized understanding. The risks, benefits, and alternatives of sedation and/or procedure were discussed by physician. The patient agrees to continue. Procedure started. [facility] Clinical Fraility Score: 3: Managing Well. 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 Chest Pain Symptom Assessment: Asymptomatic. Correct patient, site and procedure confirmed by cath team. PERRLA. 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 Lungs clear x 5 lobes. IV Site on Arrival: Saline Lock. A 20 gauge IV was started in the right anticubital using aseptic technique. IV Fluids: 0.9% NaCl at KVO. 0 mL infused prior to laborer bituminous paving. Pre Procedural Pulses: bilateral dorsalis pedis was Doppled. Pre Procedural Pulses: bilateral posterior tibial was Doppled. Pre Procedural Pulses: bilateral radial was 2+. Oxygen started at 2liters/min via nasal canula. right groin was prepped with chloroprep then draped in the usual sterile fashion. left radial was prepped with chloroprep then draped in the usual sterile fashion. Baseline sample Acquired. HR: 96 BPM. Physician arrived. Physician scrubbed in. Immediate Pre-Procedure Time Out. Correct Patient: Yes; Correct Procedure: Yes; Correct Site: Yes; Correct Patient Position: Yes; Correct Supplies: Yes; Dried Flammable Prep: Yes; Blood Products Available: N/A;. Lidocaine 1% infiltrated to the right radial. A 5 montenegrin Moreno catheter in over wire. Multiple views taken of left coronary artery. Catheter redirected to the RCA. Multiple views taken of right coronary artery. Physician review of cine films. Catheter removed over the exchange wire. 6 montenegrin XB 3.5 SH guide catheter was inserted over the wire. AP Pads placed on the patient. Guide catheter out. A TR Band was successful obtaining hemostatsis at the Right Radial artery insertion site. Lidocaine 1% infiltrated to the right groin. Arterial access obtained with micropuncture set. A Right femoral angiogram was performed to determine safe placement of closure device. 6 montenegrin XB 3.5 SH guide catheter was inserted over the wire. ACT drawn. Results 208 seconds. Therapeutic limits - pre-heparin administration 90-150 seconds and monitoring heparin during a vascular procedure >250 seconds. Runthrough guidewire was advanced through the guide catheter to lesion in the prox Circ. Inflation number : 1 A MDT NC EUPHORA RX 3.49B40CB BALLOON was prepped and advanced across the Mid CX , then inflated to 14 ARMOND for 0:16 seconds. Inflation number: 2 The MDT NC EUPHORA RX 3.52S62PJ BALLOON was reinflated across the Mid CX, to 14 ARMOND for 0:09 seconds. Inflation number: 1 The MDT NC EUPHORA RX 3.44R38UT BALLOON was reinflated across the Prox CX, to 16 ARMOND for 0:21 seconds. Inflation number: 2 The MDT NC EUPHORA RX 3.37R67WU BALLOON was reinflated across the Prox CX, to 16 ARMOND for 0:12 seconds. Inflation number: 3 The MDT NC EUPHORA RX 3.45V47TB BALLOON was reinflated across the Prox CX, to 18 ARMOND for 0:16 seconds. Balloon out. Results checked. Inflation number : 4 A MDT NC EUPHORA RX 3.09H22SO BALLOON was prepped and advanced across the Prox CX , then inflated to 18 ARMOND for 0:23 seconds. Inflation number: 5 The MDT NC EUPHORA RX 3.19L25DL BALLOON was reinflated across the Prox CX, to 22 ARMOND for 0:40 seconds. Balloon out. Inflation Number : 3 A MDT R JOSE DANIEL 3.5X12 ALYSA -Lot Number# _[id number] EXP: 05/10/2027 was prepped and advanced across the Mid CX. The stent was deployed at 12 ARMOND for 0:17 seconds. Stent balloon out over wire. Inflation Number : 6 A MDT R JOSE DANEIL 3.5X12 ALYSA -Lot Number# _[id number]_ EXP: 08/01/2026 was prepped and advanced across the Prox CX. The stent was deployed at 12 ARMOND for 0:12 seconds. Stent balloon out over wire. Inflation number : 4 A MDT NC EUPHORA RX 4.98G43UW BALLOON was prepped and advanced across the Mid CX , then inflated to 12 ARMOND for 0:19 seconds. Inflation number: 5 The MDT NC EUPHORA RX 4.80Q66GH BALLOON was reinflated across the Mid CX, to 12 ARMOND for 0:14 seconds. Inflation number: 7 The MDT NC EUPHORA RX 4.20U97ZC BALLOON was reinflated across the Prox CX, to 12 ARMOND for 0:19 seconds. Balloon out. Runthrough repositioned to distal LAD. Inflation number : 1 A AB MINI TREK 2.00X20 RX BALLOON was prepped and advanced across the Mid LAD , then inflated to 8 ARMOND for 0:25 seconds. Inflation number: 2 The AB MINI TREK 2.00X20 RX BALLOON was reinflated across the Mid LAD, to 12 ARMOND for 0:22 seconds. Inflation number: 3 The AB MINI TREK 2.00X20 RX BALLOON was reinflated across the Mid LAD, to 12 ARMOND for 0:10 seconds. Balloon out. ACT drawn. Results 396 seconds. Therapeutic limits - pre-heparin administration 90-150 seconds and monitoring heparin during a vascular procedure >250 seconds. Results checked. Wire and Guide catheter out. A 5 montenegrin Angled Pig catheter in over wire. EDP Sample taken: LV 133/-11,5; HR: 66 BPM; SpO2: 96%. LV gram performed in MUÑOZ @ 10 mL/second for a total of 30 mL. EDP Sample taken: LV 135/-15,5; HR: 62 BPM; SpO2: 95%. Pullback taken: LV 136/-15,5; AO 138/67(95); Mean: 0mmHg, Peak to Peak: 0mmHg, SEP: 14sec/min; HR: 59 BPM; SpO2: 97%. Catheter removed over the exchange wire. A Angio-Seal VIP (St. Sandip) was successful obtaining hemostatsis at the Right Femoral artery insertion site. Post Procedure: Pulses reassessed and unchanged. PERRLA. 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 No VTE prophylaxis required. Medication's Wasted: Heparin = 1000 units. Total IV fluids: 85 mL. Post-op diagnosis: Stent to CX. Complications: None. Estimated blood loss: 5mL-10mL. Responsiveness - Normal response to verbal stimuli; alert and oriented, PERRLA. Airway - Unaffected, no intervention required; spontaneous ventilation. Circulation: W/N/L, pulses unchanged. Nausea/Vomiting: No. Vital chart was stopped. Procedure completed. Patient transferred by bed to 1st floor. Access Site Site: Right Radial artery Sheath Size: 6 Fr Hemostasis Method: TR Band Hemostasis Success: Successful Site: Right Femoral artery Sheath Size: 6 Fr Hemostasis Method: Angio-Seal VIP (St. Sandip) Hemostasis Success: Successful Procedure Medications Start: 10:54 AM Stop: 10:54 AM Medication: Versed Amount: 1 mg Route: I.V. Start: 10:54 AM Stop: 10:54 AM Medication: Fentanyl Amount: 50 mcg Route: I.V. Start: 11:00 AM Stop: 11:00 AM Medication: Versed 1 mg and Fentanyl 25 mcg Amount: 1 Route: I.V. Start: 11:09 AM Stop: : AM Medication: Nitrogylcerin Amount: 200 mcg Route: I.A. Start: 11:11 AM Stop: : AM Medication: Heparin Amount: 5000 units Route: I.V. Start: 11:28 AM Stop: : AM Medication: Versed 1 mg and Fentanyl 25 mcg Amount: 1 Route: I.V. Start: 11:50 AM Stop: 11:50 AM Medication: Heparin Amount: 5000 units Route: I.V. Start: 12:14 PM Stop: 12:14 PM Medication: Versed Amount: 1 mg Route: I.V. Start: 12:18 PM Stop: 12:18 PM Medication: Nitrogylcerin Amount: 200 mcg Route: I.A. Start: 12:33 PM Stop: 12:33 PM Medication: Plavix Amount: 300 mg Route: P.O. I, the attending physician, have reviewed and verified all procedure medications. Yes, all medications given per verbal order History/Risk Factors Hypertension: Yes Dyslipidemia: No Peripheral Arterial Disease (PAD): No Myocardial Infarction ([place]): No Obesity: No Renal Disease: No Tobacco Use: Former Prior Interventions PCI: Yes CABG: No Valve Surgery: No Date of PCI: 06/16/2009 Report Signatures Finalized by Karoline Billingsley MD on 02/21/2025 04:44 PM
[2025-02-18 09:34] LABS: Hematocrit 40.9 % (37-53); Hemoglobin 12.70 g/dL (11.27-16.99); Mean Corpuscular HGB Conc 31.1 g/dL (30-55); Mean Corpuscular Hemoglobin 25.6 pg (27-33); Mean Corpuscular Volume 82.5 fl (82-101); Nucleated Red Blood Cells % 0 %; Platelet Count 358 10^3/cmm (157-399); Red Blood Count 4.96 10^6/uL (3.85-5.65); White Blood Count 10.71 10^3/uL (3.29-11.43)
[2025-02-18 10:06] LABS: Anion Gap 14.0 (5-19); Blood Urea Nitrogen 10 mg/dL (6-20); Calcium 8.7 mg/dL (8.5-10.5); Carbon Dioxide 27 mmol/L (22-29); Chloride 104 mmol/L (98-107); Creatinine Clr Calc Pharmacy 88.4837; Glucose 113 mg/dL (65-115); Osmolality Calculated 292 mOsm/kg (285-295); Potassium 4.0 mmol/L (3.5-5.1); Sodium 141 mmol/L (136-145)
--- NOTE | 2025-02-18 10:41 | P.HP_ITS ---
Same Day Surgery H&P Indication for Procedure/HPI DATE OF PROCEDURE: February 18, 2025 CHIEF COMPLAINT/INDICATIONFOR SURGICAL PROCEDURE: New onset of heart failure Moderately depressed left ventricular ejection fraction new onset Frequent PVCs PREOP DIAGNOSIS: New onset of heart failure with moderately depressed left ventricular eject PLANNED PROCEDURE: Left heart cath/PCI if indicated Operation Date: 02/18/25 10:00 Proposed Procedures p Cardiac Catheterization - C w/wo LV Coros(Left) - Karoline Billingslye MD 54-year-old male past medical history significant for hypertension and shortness of breath noted to have new onset of heart failure with moderately depressed left ventricular ejection fraction which is new. Patient is here for left heart catheter to rule out ischemic component. Patient also has frequent premature ventricular contractions. Medications/Allergies* Home Medications ?Medication ?Instructions ?Recorded ?Confirmed ?Type aspirin 325 mg tablet 325 mg PO ONCE 03/05/1902/08 History nitroglycerin 0.4 mg sublingual 0.4 mg sublingual Q5M PRN Chest 03/05/19 02/17/25 History tablet (Nitrostat) Pain hydrocodone 10 mg-acetaminophen See Rx Instructions .R oute 02/17/25 02/17/25 History 325 mg tablet .COMPLEX PRN Pain Allergies/Adverse Reactions Allergy/AdvReac Type Severity Reaction Status Date / Time Penicillins AdvReac Severe ALGY-Rash Verified 02/15/25 13:00 Current Medications: Generic Name Dose Route Start Last Admin Trade Name Freq PRN Reason Stop Dose Admin Sodium Chloride 1,000 mls @ 50 mls/hr 02/18/25 09:00 02/18/25 09:06 Sodium Chloride 0.9% IV 02/19/25 04:59 Not Given .Q20H ONE Pertinent History/Comorbid Conditions* Medical History (Updated 01/31/25 @ 11:13 by Louise Reis) Seasonal allergic rhinitis Allergy-induced asthma Urinary hesitancy Coronary artery disease DM type 1 (diabetes mellitus, type 1) Opioid contract exists Lumbar radiculitis 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 Family History (Updated 03/13/19 @ 11:34 by Corie Quinn RN) Diabetes Father Myocardial infarct Father Family/Other BOTH SIDES OF THE FAMILY Social History Smoking and tobacco/nicotine status: former use of tobacco/nicotine Second hand smoke exposure: No Alcohol intake: never Substance/Drug Use: never Adopted: No Caregiver/support person: No Lives independently: Yes Household members: spouse Marital status: Number of children: 2 service: No Current occupational status: disabled Do you think of yourself as: Straight/Heterosexual Current gender identity: Male Pertinent Exam Findings alert, oriented x 3, clear to auscultation bilaterally, regular rate & rhythm, operative site marked and procedure specific exam findings Conscious Sedation Assessment PATIENT ASSESSED PRIOR TO SEDATION, WITH NO CHANGE NOTED: Yes AIRWAY EVAL/ANESTHESIA PLAN: ASA II and Patient agrees to continue as planned Recommendations Surgery/Procedure today Other Plans: Patient has been explained all risk-benefit and alternative for the procedure. Patient understand 2% risk of stroke major bleed. Patient understands 5% risk of minor bleeding infection hematoma contrast-induced nephropathy urgent or emergent vascular or bypass surgery. Patient would like to proceed with that. Coding Level of Care Code Acute Code for Chg Viky
--- NOTE | 2025-02-18 12:42 | PM.PROC ---
Procedure Note: Date of procedure: 02/18/25 Pre-procedure diagnosis: Worsening of LV function/chest pain Procedure: Left heart cath was performed Left main: Normal Left circumflex artery has proximal and mid high grade calcified and in-stent restenosis, groove circumflex has chronically occluded stent. LAD is moderate-sized in caliber long vessel with mid to distal high-grade stenosis, beyond that LAD tapers off into small caliber vessel Right coronary artery is a chronically occluded it fills through [id number] collaterals PCI to proximal and mid left circumflex artery with drug-eluting stents Respiratory and postdilated. Excellent angiographic result was obtained Distal LAD 80% high-grade calcified stenosis was treated with balloon angioplasty with good result 80% lesion was reduced to 20% since it is small caliber vessel via separate the result of balloon angioplasty. Plan: Continue dual antiplatelet therapy in the form of Plavix and aspirin Resume home medications IV fluid 100 mL/h for next 10 hours Full note to be dictated Bedrest for 4 hours for right common femoral Angio-Seal Radial band as per protocol Coding Level of Care Code Acute Code for Preeti Salmon
--- NOTE | 2025-02-18 12:57 | PC.NURSE ---
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 NS to run at 100ml/hr for the rest of the bag per Dr. Billingsley.
--- NOTE | 2025-02-18 16:32 | PC.NURSE ---
Patients right radial TR-band is removed at 1630. Air is slowly removed 1 to 2 mls at a time. When air is completely removed from the TR-band the band is removed. A 2x2 and tegaderm dressing is applied. Patient is reeducated that he is not to use his right wrist/hand for the 1st 24 hours. Patient states understanding. No hematoma is noted. Patient tolerated well.
--- NOTE | 2025-02-18 16:54 | PC.NURSE ---
Patients dexcom read 285. Patient refused to have us check it also.
--- NOTE | 2025-02-18 20:51 | PC.NURSE ---
dexcom reading of 195
[2025-02-19] VITALS: BP 122/65; PULSE 73; RESP 20; O2SAT 96
[2025-02-19 03:59] LABS: Hematocrit 38.5 % (37-53); Hemoglobin 12.00 g/dL (11.27-16.99); Mean Corpuscular HGB Conc 31.2 g/dL (30-55); Mean Corpuscular Hemoglobin 25.6 pg (27-33); Mean Corpuscular Volume 82.3 fl (82-101); Nucleated Red Blood Cells % 0 %; Platelet Count 329 10^3/cmm (157-399); Red Blood Count 4.68 10^6/uL (3.85-5.65); White Blood Count 8.53 10^3/uL (3.29-11.43)
[2025-02-19 04:00] VITALS: BP 140/84; PULSE 75; RESP 15; O2SAT 95
[2025-02-19 04:23] LABS: Anion Gap 13.6 (5-19); Blood Urea Nitrogen 15 mg/dL (6-20); Calcium 8.8 mg/dL (8.5-10.5); Carbon Dioxide 27 mmol/L (22-29); Chloride 102 mmol/L (98-107); Glucose 346 mg/dL (65-115); Osmolality Calculated 301 mOsm/kg (285-295); Potassium 4.6 mmol/L (3.5-5.1); Sodium 138 mmol/L (136-145)
[2025-02-19] MEDS: ATORVASTATIN 20 MG TABLET PO (04:31)
[2025-02-19 04:32] VITALS: BP 140/84; PULSE 71; RESP 20; TEMP 36.7; O2SAT 97
[2025-02-19 07:51] VITALS: BP 114/64; PULSE 68; RESP 22; TEMP 36.6; O2SAT 96
[2025-02-19 08:00] VITALS: BP 90/40; PULSE 74
--- NOTE | 2025-02-19 16:25 | P.DS_ITS ---
<Statement entered by Karoline Billingsley MD - 02/20/25 14:46> Patient was evaluated and cared for in conjunction with an advanced practice practitioner. I personally have not examined the patient today but reviewed the chart and all pertinent data including imaging, telemetry, and laboratory results. I discussed the patient in detail with the advanced practice practitioner. Please see their note for complete H&P testing result and agreed upon plan of care for the patient. No overnight event no complication No complications of the procedure Status post percutaneous angioplasty PCI of proximal and mid RCA for severe in- stent restenosis , stents were postdilated with noncompliant balloon. Distal LAD balloon angioplasty was performed, excellent angiographic result NJ-3 flow was noted without any complication at the end of the case. Assessment plan Coronary artery disease status post PCI proximal to mid circumflex and balloon angioplasty of distal LAD, patient is to continue dual antiplatelet therapy in the form of Plavix and aspirin. Continue statin continue beta-gogo LV dysfunction with moderately depressed ejection fraction 45% Continue guideline medical therapy Advise to continue dual antiplatelet therapy in the form of Plavix and aspirin for at least 1 year preferably 2 Follow-up with cardiology nurse practitioner in 10 days. Discharge Providers Date of Admission: 02/18/2025 Date of Discharge: February 19, 2025 Attending Provider at Admission: Dr. Billingsley Attending Provider at Discharge: Karoline Billingsley MD Primary Care Provider: NATALIIA Hermosillo Reason for Visit Reason for Visit: na Brief History: This is a 54-year-old gentleman who was seen by Dr. Billingsley in the office for atherosclerotic heart disease. Echo showed reduced ejection fraction and mild mitral valve regurgitation. Event monitor indicated sinus rhythm with ventricular and supraventricular ectopy. Hypertension was controlled with current medications. Denied any chest pain at that time. Due to reduced ejection fraction and mitral valve regurg indicating possible cardiomyopathy a left heart cath was planned and performed on 02/18/2025. Hospital Course Hospital Course Patient underwent left heart cath on 02/18/2025. This showed left circumflex had proximal mid high-grade calcified in-stent restenosis, groove circumflex had chronically occluded stent, LAD is moderate size caliber vessel with mid to distal high-grade stenosis beyond that LAD tapers in a small caliber vessel, RCA is chronically occluded fills through [id number] collaterals. PCI was performed to proximal and mid left circumflex artery with drug-eluting stents. Excellent angiographic results were obtained. Distal LAD had 80% high-grade stenosis which was treated with balloon angioplasty with good results and reduced to 20%. Patient tolerated procedure well without complications. He will be sent home in stable to improved condition. Should continue aspirin and Plavix at least for 1 year preferably 2. Follow-up in clinic in 1 week. Physical Exam Narrative: General: No apparent distress, healthy appearing, well nourished HENMT: normoceophalic Neck: No carotid bruit bilaterally Muskuloskeletal: Full ROM Lymphatic: no lymphedema noted Respiratory: Normal respiratory effort, clear to auscultation bilaterally throughout all lung wheeler, no use of accessory muscles Cardio: No JVD, regular rate, regular rhythm, S1 S2 normal, no murmurs, peripheral pulses 2+ radial palpated bilaterally GI: Normal to inspection, nondistended Extremities: Full ROM, normal, normal capillary refill, no cyanosis or edema Neuro: Alert and oriented x4, no focal motor deficits Psych: Affect normal, denies suicidal ideation, mental status grossly normal Skin: Right groin and wrist puncture site clean dry intact no signs of hematoma Discharge Data Studies Completed and Pending Pending at discharge Category Date Time 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 Routine Exams 02/18/25 09:00 Taken Laboratory Results WBC 8.53 10^3/uL (3.29-11.43) 02/19/25 03:12 RBC 4.68 10^6/uL (3.85-5.65) 02/19/25 03:12 Hgb 12.00 g/dL (11.27-16.99) 02/19/25 03:12 Hct 38.5 % (37-53) 02/19/25 03:12 MCV 82.3 fl (82-101) 02/19/25 03:12 MCH 25.6 pg (27-33) L 02/19/25 03:12 MCHC 31.2 g/dL (30-55) 02/19/25 03:12 RDW 14.6 % (12.1-15.1) 02/19/25 03:12 Plt Count 329 10^3/cmm (157-399) 02/19/25 03:12 MPV 9.7 fL (7.4-10.4) 02/19/25 03:12 Neut % (Auto) 59.8 % 02/19/25 03:12 Lymph % (Auto) 26.0 % 02/19/25 03:12 [place] % (Auto) 11.4 % 02/19/25 03:12 Eos % (Auto) 1.8 % 02/19/25 03:12 Baso % (Auto) 0.8 % 02/19/25 03:12 Neut # (Auto) 5.10 10^3/uL (1.8-7.7) 02/19/25 03:12 Lymph # (Auto) 2.2 10^3/uL (0.8-4.8) 02/19/25 03:12 [place] # (Auto) 1.0 10^3/uL (0.2-0.9) H 02/19/25 03:12 Eos # (Auto) 0.2 10^3/uL (0.0-0.8) 02/19/25 03:12 Baso # (Auto) 0.1 10^3/uL (0.0-0.1) 02/19/25 03:12 Nucleated RBC % (auto) 0 % 02/19/25 03:12 Nucleated RBCs # 0.0 /100WBC 02/19/25 03:12 Sodium 138 mmol/L (136-145) 02/19/25 03:12 Potassium 4.6 mmol/L (3.5-5.1) 02/19/25 03:12 Chloride 102 mmol/L (98-107) 02/19/25 03:12 Carbon Dioxide 27 mmol/L (22-29) 02/19/25 03:12 Anion Gap 13.6 (5-19) 02/19/25 03:12 BUN 15 mg/dL (6-20) 02/19/25 03:12 Creatinine 1.2 mg/dL (0.7-1.2) 02/19/25 03:12 GFR Calculation 62.9 mL/min (90-130) L 02/19/25 03:12 Glucose 346 mg/dL (65-115) H 02/19/25 03:12 Calculated Osmolality 301 mOsm/kg (285-295) H 02/19/25 03:12 Calcium 8.8 mg/dL (8.5-10.5) 02/19/25 03:12 Vitals Last Vital Signs Temp 97.9 F 02/19/25 07:51 Pulse 74 02/19/25 08:00 Resp 22 H 02/19/25 07:51 BP 90/40 02/19/25 08:00 Pulse Ox 96 02/19/25 07:51 O2 Del Method Room Air 02/19/25 07:51 Discharge Plan Discharge Patient Disposition: Home Prescriptions: New aspirin 81 mg Tablet,Delayed Release (Dr/Ec) 81 mg PO DAILY Qty: 90 3RF clopidogrel 75 mg Tablet 75 mg PO DAILY Qty: 90 3RF Continued nitroglycerin [Nitrostat] 0.4 mg tablet, sublingual 0.4 mg SUBLINGUAL Q5M PRN (Reason: Chest Pain) (DME) 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 See Rx Instructions .ROUTE .MEDSUPPLY Qty: 1 0RF Rx Instructions: As directed tamsulosin [Flomax] 0.4 mg capsule 0.4 mg PO .with supper Qty: 30 2RF lisinopril 40 mg tablet 40 mg PO DAILY Qty: 30 2RF insulin lispro [Humalog KwikPen Insulin] 100 unit/mL insulin pen See Rx Instructions SUBCUT TID Qty: 30 5RF Rx Instructions: 28-40U SUBCUT three times daily; Tresiba FlexTouch U-100 100 unit/mL (3 mL) insulin pen See Rx Instructions SUBCUT DAILY Qty: 45 2RF Rx Instructions: up to 80 units SUBCUT daily; gabapentin 600 mg tablet 600 mg PO TID Qty: 90 5RF fluticasone propionate 50 mcg/actuation spray,suspension 2 spray INTRANASAL DAILY Qty: 16 5RF Repatha Syringe 140 mg/mL syringe 140 mg SUBCUT .every 14 days Qty: 2 2RF carvedilol 3.125 mg tablet 3.125 mg PO BID Qty: 60 5RF (DME) Dexcom G7 Sensor Device See Rx Instructions .ROUTE .MEDSUPPLY Qty: 12 3RF Rx Instructions: change every 10 days finasteride 5 mg tablet 5 mg PO DAILY Qty: 30 5RF cholecalciferol (vitamin D3) 125 mcg (5,000 unit) capsule 250 mcg PO .Daily OTC Qty: 60 2RF Vascepa 1 gram capsule 2 g PO BID Qty: 120 5RF levalbuterol tartrate [Xopenex HFA] 45 mcg/actuation HFA aerosol inhaler 2 inh INHALATION Q6H Qty: 15 5RF Spiriva with HandiHaler 18 mcg capsule, w/inhalation device 1 cap inhalation DAILY Qty: 30 5RF Rx Instructions: puncture 1 cap using device; one dose = 2 inhalations rosuvastatin 10 mg tablet 10 mg PO DAILY Qty: 30 5RF (DME) pen needle, diabetic 33 gauge x 5/32 needle See Rx Instructions .ROUTE .MEDSUPPLY Qty: 200 5RF Rx Instructions: 4 times day if needed hydrocodone-acetaminophen 10-325 mg Tablet See Rx Instructions .ROUTE .COMPLEX PRN (Reason: Pain) Rx Instructions: 1 tab orally as needed every 4-6HR Held metformin 500 mg tablet 500 mg PO DAILY Qty: 30 5RF Hold Instructions: Resume on 02/22/25. Discontinued aspirin 325 mg tablet 325 mg PO ONCE clopidogrel 75 mg tablet 75 mg PO DAILY Qty: 30 5RF Discharge Order = DC NOW: Discharge Order (Routine); Ordered 02/19/25 Ordered By: Natalie aDi Referrals: Belinda Logan FNP-C [Primary Care Provider, Family Practice] - 03/15/25 2:40 pm Ammon Godinez M.D [Physician, Cardiology] - 03/10/25 2:30 pm Patient Instructions: Aspirin (By mouth), Clopidogrel (By mouth), Coronary Angioplasty (DC), Post Angiogram Home Care Instructions Activity Restrictions/Additional Instructions: Discussed with patient no heavy lifting more than a gallon of milk as well as going up or down steps for 3 days. No driving for 3 days. Monitor for and report signs or symptoms of bleeding. Monitor for and report s/s of infection such as fever 101 or greater, swelling, redness or pain to the groin. Print Language: Guamanian Discharge Date/Time: 02/19/25 11:24 Discharge Attestations Time Spent in Discharge Care*: less than 30 min Quality Metrics Clinical Quality Measures [ No reported AMI, CVA or VTE this stay] Coding Level of Care Code Acute Code for Gloriag Viky
== END 2025-02-19 11:24 | disposition home or self-care (01) ==
LOC: CCL 08:57 → CSU 12:43
PROVIDERS: PCP Nurse Practitioner; Visit Provider Internal Medicine Cardiovascular Disease
DX: I25.10 Atherosclerotic heart disease of native coronary artery without angina pectoris (principal); I25.82 Chronic total occlusion of coronary artery; I11.0 Hypertensive heart disease with heart failure; I50.9 Heart failure, unspecified; Z87.891 Personal history of nicotine dependence; Z79.82 Long term (current) use of aspirin; Z79.891 Long term (current) use of opiate analgesic; E10.8 Type 1 diabetes mellitus with unspecified complications; G62.9 Polyneuropathy, unspecified; Z95.5 Presence of coronary angioplasty implant and graft; Z79.4 Long term (current) use of insulin; Z79.84 Long term (current) use of oral hypoglycemic drugs
CPT/HCPCS: 36415; 80048; 85025; 85347; 92920; 93458; 96372; 99152; 99153; C1725; C1760; C1769; C1874; C1887; C1894; C9600; G0269; J0461; J1644; J1815; J2250; J3010; J3490; J7030; J9999; Q0163; Q9967

== ENCOUNTER 2025-02-20 10:29 | Emergency (ER) | payer MEDICARE, MEDICAID, SELFPAY ==
--- OUTSIDE RECORDS SUMMARY | 2025-02-15 03:01 | XMS_ITS ---
Author Organization [facility] Address [address] [place] [address] Care Team Providers Care Buttoner Name Role Phone Belinda Logan APRN Primary Care Provider Orlin wen Jorge Jean Unavailable [phone] Valeriano Welch Unavailable [phone] REASON FOR VISIT 02/17 WP rest of Rx Medications Medication SIG (Take, Route, Frequency, Duration) Notes Start Date End Date Status HYDROcodone-Acetamino phen 10-325 MG Tablet 1 tablet as needed Orally every 6 hrs; Duration: 23 days As needed Not to exceed 4 per day Fill 02/17/2025 02/16/2025 03/12/2025 Active Encounters Encounter Location Date Provider Diagnosis [facility] [place] [address] [place] [address] 02/15/2025 Valeriano Welch Left hip pain M25.552 Assessments Encounter Date Diagnosis (ICD Code) Assessment Notes Treatment Notes Treatment Clinical Notes Section Notes 02/15/2025 Left hip pain (ICD-10 - M25.552) Plan Of Treatment Medication Medication Name Sig Start Date Stop Date Notes HYDROcodone-Acetaminophen 10-325 MG Tablet 1 tablet as needed Orally every 6 hrs; Duration: 23 days 02/16/2025 03/12/2025 Fill 02/17/2025 Next Appt Details Provider Name:Valeriano Welch, 03/17/2025 11:20:00 AM, [address] [place], [address], Progress Notes * Neal AMARO EDOB:1970 (54 yo M)Acc No.[id number]:02/15/2025 Patient: Neal MARRUFO :1970 A ge:54 Y S ex:Male Address:[place], [address] * Refills Refill HYDROcodone-Acetaminophen Tablet, 10-325 MG, Orally, 92 Tablet, 1 tablet as needed, every 6 hrs, As needed Not to exceed 4 per day, 23 days, Refills=0 Subjective: * Chief Complaints: * 1 04/20 WP rest of Rx Assessment: * Assessment: 1. L eft hip pain - M25.552 Plan: * Treatment: * true * Date: Generated for Gloria gomez/Nohemy/David on: 04/23/2024 10:32 AM CERTIFIED MEDICAL CODER
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
--- OUTSIDE RECORDS SUMMARY | 2025-02-20 10:33 | XMS_ITS | Patient Health Record ---
Author Organization [facility] Address [address] [place] [address] Care Team Providers Care Machine Loader Name Role Phone Doreen MAYUR Belinda Primary Care Provider Unav ailable Jorge Jean Unavailable [phone] NiiValeriano lundberg Unavailable [phone] Allergies Allergen (clinical drug ingredient) Drug/Non Drug Allergy documented on EMR Reaction Allergy Type Onset Date Status Penicillin Unknown Drug Allergy Active Results Component Value Reference Range Flag Notes MRI Lumbar Spine w/o Cont-[id number] Reviewed date:12/09/2024 10:42:44 AM Interpretation: Performing Lab: Notes/Report: Urine Drug Screen (cup read) - [id number] Reviewed date:12/09/2024 02:00:16 PM Interpretation:negative all Performing Lab: Notes/Report: negative all Urine Confirmation Panel (in strument) - [id number] Reviewed date:12/16/2024 11:49:05 AM Interpretation: Performing Lab: Notes/Report: 6-Acetylmorphine 0 <6 ng/mL N This alcon t was developed and its performance characteristics determined by [facility]. It has not been cleared or approved by the U.S. Food and Drug Administration. 7-Aminoclonazepam 0 <60 ng/mL N This te st was developed and its performance characteristics determined by [facility]. It has not been cleared or approved by the U.S. Food and Drug Administration. Alprazolam 0 <60 ng/mL N This test was developed and its performance characteristics determined by [facility]. It has not been cleared or approved by the U.S. Food and Drug Administration. Amphetamine 0 <75 ng/mL N This test was developed and its performance characteristics determined by [facility]. It has not been cleared or approved by the U.S. Food and Drug Administration. aOH-Alprazolam 0 <60 ng/mL N This test was developed and its performance characteristics determined by [facility]. It has not been cleared or approved by the U.S. Food and Drug Administration. Buprenorphine 0.1 <7.5 ng/mL N This test w as developed and its performance characteristics determined by [facility]. It has not been cleared or approved by the U.S. Food and Drug Administration. Norbuprenorphine 0.0 <37.5 ng/mL N This te st was developed and its performance characteristics determined by [facility]. It has not been cleared or approved by the U.S. Food and Drug Administration. Carisoprodol 0 <75 ng/mL N This test wa s developed and its performance characteristics determined by [facility]. It has not been cleared or approved by the U.S. Food and Drug Administration. Codeine 0 <75 ng/mL N This test was developed and its performance characteristics determined by [facility]. It has not been cleared or approved by the U.S. Food and Drug Administration. EDDP 0 <75 ng/mL N This test was developed and its performance characteristics determined by [facility]. It has not been cleared or approved by the U.S. Food and Drug Administration. Fentanyl 0 <6 ng/mL N This test was developed and its performance characteristics determined by [facility]. It has not been cleared or approved by the U.S. Food and Drug Administration. Hydrocodone 0 <75 ng/mL N This test was developed and its performance characteristics determined by [facility]. It has not been cleared or approved by the U.S. Food and Drug Administration. Hydromorphone 1138 <75 ng/mL H This test w as developed and its performance characteristics determined by [facility]. It has not been cleared or approved by the U.S. Food and Drug Administration. Lorazepam 0 <60 ng/mL N This test was developed and its performance characteristics determined by [facility]. It has not been cleared or approved by the U.S. Food and Drug Administration. MDMA 0 <75 ng/mL N This test was developed and its performance characteristics determined by [facility]. It has not been cleared or approved by the U.S. Food and Drug Administration. Meperidine 0.0 <37.5 ng/mL N This test was developed and its performance characteristics determined by [facility]. It has not been cleared or approved by the U.S. Food and Drug Administration. Meprobamate 0 <75 ng/mL N This test was developed and its performance characteristics determined by [facility]. It has not been cleared or approved by the U.S. Food and Drug Administration. Methamphetamine 0 <75 ng/mL N This test was developed and its performance characteristics determined by [facility]. It has not been cleared or approved by the U.S. Food and Drug Administration. Methadone 0 <75 ng/mL N This test was developed and its performance characteristics determined by [facility]. It has not been cleared or approved by the U.S. Food and Drug Administration. Morphine 0 <75 ng/mL N This test was developed and its performance characteristics determined by [facility]. It has not been cleared or approved by the U.S. Food and Drug Administration. Nordiazepam 0 <60 ng/mL N This test was developed and its performance characteristics determined by [facility]. It has not been cleared or approved by the U.S. Food and Drug Administration. Norfentanyl 1 <6 ng/mL N This test was developed and its performance characteristics determined by [facility]. It has not been cleared or approved by the U.S. Food and Drug Administration. Normeperidine 0.0 <37.5 ng/mL N This test was developed and its performance characteristics determined by [facility]. It has not been cleared or approved by the U.S. Food and Drug Administration. O-desmethyltramadol 16 <75 ng/mL N This test was developed and its performance characteristics determined by [facility]. It has not been cleared or approved by the U.S. Food and Drug Administration. Oxazepam 0 <60 ng/mL N This test was developed and its performance characteristics determined by [facility]. It has not been cleared or approved by the U.S. Food and Drug Administration. Oxycodone 0.0 <37.5 ng/mL N This test was developed and its performance characteristics determined by [facility]. It has not been cleared or approved by the U.S. Food and Drug Administration. Oxymorphone 0 <75 ng/mL N This test was developed and its performance characteristics determined by [facility]. It has not been cleared or approved by the U.S. Food and Drug Administration. Phencyclidine 0.0 <7.5 ng/mL N This test w as developed and its performance characteristics determined by [facility]. It has not been cleared or approved by the U.S. Food and Drug Administration. Tapentadol 17.0 <37.5 ng/mL N This test was developed and its performance characteristics determined by [facility]. It has not been cleared or approved by the U.S. Food and Drug Administration. Temazepam 0 <60 ng/mL N This test was developed and its performance characteristics determined by [facility]. It has not been cleared or approved by the U.S. Food and Drug Administration. Tramadol 0 <75 ng/mL N This test was developed and its performance characteristics determined by [facility]. It has not been cleared or approved by the U.S. Food and Drug Administration. Norhydrocodone 0 <75 ng/mL N This test was developed and its performance characteristics determined by [facility]. It has not been cleared or approved by the U.S. Food and Drug Administration. Noroxycodone 0 <38 ng/mL N This test wa s developed and its performance characteristics determined by [facility]. It has not been cleared or approved by the U.S. Food and Drug Administration. Pregabalin 0 <225 ng/mL N This test was developed and its performance characteristics determined by [facility]. It has not been cleared or approved by the U.S. Food and Drug Administration. Gabapentin >84339 <225 ng/mL > This test was developed and its performance characteristics determined by [facility]. It has not been cleared or approved by the U.S. Food and Drug Administration. Benzoylecgonine 0.0 <37.5 ng/mL N This alcon t was developed and its performance characteristics determined by [facility]. It has not been cleared or approved by the U.S. Food and Drug Administration. 4-Hydroxy Xylazine 0 <25 ng/mL N This t est was developed and its performance characteristics determined by [facility]. It has not been cleared or approved by the U.S. Food and Drug Administration. Tox Results Reviewed date:12/16/2024 12:13:48 PM Interpretation: Performing Lab: Notes/Report: Reason For Referral Reason eval and treat Diagnosis 1 Dorsalgia, unspecifi ed (M54.9) Diagnosis 2 Other chronic pain ( G89.29) Diagnosis 3 Radiculopathy, lumba r region (M54.16) Referring Provider First Name Belinda Referring Provider Last Name Doreen Referring Provider Speciality Nurse Samia watkins Referred Organization [facility] Referred Provider Valeriano Welch Referred Address [address],[facility],[address],[place] Referred Provider Specialty [facility] General Notes Kristen Carmen 02:51:56 PM >mailing npp, scheduled patient Referral Priority Routine Medications Medication SIG (Take, Route, Frequency, Duration) Notes Start Date End Date Status HYDROcodone-Acetamino phen 10-325 MG Tablet 1 tablet as needed Orally every 6 hrs; Duration: 23 days As needed Not to exceed 4 per day Fill 02/17/2025 02/16/2025 03/12/2025 Active Lisinopril 40 MG Tablet TAKE 1 TABLET BY MOUTH DAILY Oral; Duration: 30 Days Active Tresiba FlexTouch 100 UNIT/ML Solution Pen-injector inject UP TO 80 units SUBCUTANEOUSLY DAILY Subcutaneous; Duration: 37 Days Active Rosuvastatin Calcium 10 MG Tablet Oral; Duration: 30 Days Active Clopidogrel Bisulfate 75 MG Tablet Oral; Duration: 30 Days Active Carvedilol 3.125 MG Tablet TAKE 1 TABLET BY MOUTH TWICE DAILY Oral; Duration: 30 Days Active Finasteride 5 MG Tablet TAKE 1 TABLET BY MOUTH DAILY Oral; Duration: 30 Days Active Dexcom G7 Sensor - Miscellaneous change EVERY 10 days; Duration: 30 Days Active HYDROmorphone HCl 4 MG Tablet 1 tablet as needed Orally every 6 hrs Active Gabapentin 600 MG Tablet TAKE 1 TABLET BY MOUTH THREE TIMES DAILY NEEDED FOR pain Oral; Duration: 30 Days Active Social History Tobacco Use: Social History Observation Description Date Details (start date - stop date) Never Smoker NA - NA Social History Tobacco Use: Social Info Question Answer Notes Tobacco Control (Standard) Tobacco use: Nonsmoker Additional Details Category Social Info Options Details Miscellaneous: Sexually active: yes painful i ntercourse Sexual abuse: no Drugs/Alcohol: Do you smoke marijuana? De nies Do you drink alcohol? No Problems Problem Type SNOMED Code ICD Code Onset Dates Problem Status W/U Status Risk Notes Problem Chronic pain (23745847) Other chronic pain (G89.29) Active confirmed Problem Chronic pain syndrome (642723110) Chronic pain syndrome (G89.4) Active confirmed Problem Lumbosacral spondylosis without myelopathy (88023875) Other spondylosis with radiculopathy, lumbar region (M47.26) Active confirmed Problem Lumbar radiculopathy (522834440) Radiculopathy, lumbar region (M54.16) Active confirmed Problem Lumbar radiculopathy (311468826) Lumbar radiculopathy (M54.16) Active confirmed Problem Lumbar spondylosis (072242695) Lumbar spondylosis (M47.816) Active confirmed Problem Abnormal gait (62191162) Abnormality of gait and mobility (R26.9) Active confirmed Vital Signs Height-cm 177.8 cm 02/10/2025 Weight-kg 97.07 kg 02/10/2025 Height 70 in 02/10/2025 Weight 214 lbs 02/10/2025 BMI 30.7 kg/m2 02/10/2025 Encounters Encounter Location Date Provider Diagnosis [facility] [address] [address] 02/10/2025 Valeriano Welch Chronic pain syndrom e G89.4 ; Left hip pain M25.552 ; Left knee pain, unspecified chronicity M25.562 ; Other spondylosis with radiculopathy, lumbar region M47.26 ; Abnormality of gait and mobility R26.9 and Long-term current use of opiate analgesic Z79.891 [facility] [address] [address] 12/25/2024 Jorge Jean Chronic pain syndrom e G89.4 ; Other spondylosis with radiculopathy, lumbar region M47.26 ; Long-term current use of opiate analgesic Z79.891 ; Abnormality of gait and mobility R26.9 ; Left hip pain M25.552 and Left knee pain, unspecified chronicity M25.562 [facility] [address] [address] 12/09/2024 Valeriano Welch Chronic pain syndrom e G89.4 ; Abnormality of gait and mobility R26.9 ; Left hip pain M25.552 ; Left knee pain, unspecified chronicity M25.562 ; Long-term current use of opiate analgesic Z79.891 and Other spondylosis with radiculopathy, lumbar region M47.26 [facility] [place] [address] [place] [address] 10/28/2024 Valeriano Welch Chronic pain syndrom e G89.4 ; Lumbar radiculopathy M54.16 ; Abnormality of gait and mobility R26.9 ; Left hip pain M25.552 and Left knee pain, unspecified chronicity M25.562 [facility] [address] [place] [address] 02/10/2025 Valeriano Anniehilda [facility] [place] [address] [place] [phone] 12/25/2024 Valeriano Welch [facility] [address] [address] 02/15/2025 Valeriano Welch Left hip pain M25.55 2 Assessments Encounter Date Diagnosis (ICD Code) Assessment Notes Treatment Notes Treatment Clinical Notes Section Notes 02/15/2025 Left hip pain (ICD-10 - M25.552) 02/10/2025 Chronic pain syndrome (ICD-10 - G89.4) I had a nice visit with the patient today regarding his chronic pain issues. Overall, he seems to be maintaining around the same. He reports that the Dilaudid still provides some relief, but he is minimally functional. He notes that he does not wear socks because he's unable to put them on and that he is unable to stand up if he bends over. He is not doing all that well. We reviewed his last MRI from November, which showed mild facet arthropathy or mild foraminal stenosis but no significant, focal pathology that would account for these symptoms. I would like to see him taper away from the Dilaudid. We will switch him to hydrocodone 10-325 mg four times a day from the hydromorphone 4 mg four times a day to see if that provides any benefit. His UDS and pill counts have been consistent with his current treatment regimen. We will follow up in a week and proceed accordingly. 02/10/2025 Left hip pain (ICD-10 - M25.552) 12/25/2024 Chronic pain syndrome (ICD-10 - G89.4) I had a nice discussion with patient today regarding his chronic pain complaints. He has been weaning down on his medication and that has been a struggle for him. At his last visit, he was decreased from 3.5 tablets to 3 tablets/day. He states that he really struggled initially and is gradually getting used to that. Discussed with patient that the goal would be to switch to possibly oxycodone or hydrocodone in the near future. For now, he will continue at the present dosage and return to clinic in about 5 weeks to monitor his progress and proceed accordingly. The patient continues with chronic pain requiring treatment to help restore function and improve quality of life. Risks of opioid therapy as well as interaction of opioids with alcohol, illicit drugs, muscle relaxers, and other sedative medications are reviewed briefly with patient again today. The patient has trialed all other reasonable treatment options and uses the medication to alleviate pain in order to remain active and rest with less pain. No clinically relevant medication side effects are noted. Last UDS and AR ASSISTANT FINANCIAL ACCOUNTANT reviewed today. Patient is advised that best long-term goals include increased activity, core strengthening, proper weight management, coping strategies, avoidance of painful triggers, and targeted interventional therapy. We will see the patient for routine follow up in accordance with all clinic policies. We did remind patient today of current guidelines to decrease opioid when possible. We will continue to stress nonopioid treatment. 12/25/2024 Other spondylosis with radiculopathy, lumbar region (ICD-10 - M47.26) 12/09/2024 Chronic pain syndrome (ICD-10 - G89.4) I had a nice visit with the patient today regarding his chronic pain issues. He has been doing his best to taper his hydromorphone. He says that he has some days when he takes three a day. We discuss options moving forward. I would still like to taper him down further and then consider switching to oxycodone or hydrocodone, depending on how things go. We reviewed his lumbar MRI, which showed lumbar spondylosis with degeneration and foraminal stenosis, but nothing severe. We will taper his medication down to 3 a day. We will follow up in a month and proceed accordingly. 12/09/2024 Abnormality of gait and mobility (ICD-10 - R26.9) 10/28/2024 Chronic pain syndrome (ICD-10 - G89.4) I had a nice visit with the patient regarding his chronic pain issues. Based on his history, physical examination, and review of a lumbar MRI from four years ago, the worst of his symptoms appears consistent with lumbar spondylosis and radiculitis. That said, the MRI does not reveal any severe pathology. It appears that a portion of his current symptoms may be related to long-term opioid use. He reports that if he goes more than an hour without taking his medication, he begins to experience withdrawal symptoms. Although he continues to struggle with pain, we discussed that his current regimen is not sustainable in the detention. With that in mind, we will begin a gradual taper of his medication. He will reduce his current use to four tablets per day using his existing supply, and I will provide a new prescription for Dilaudid 4 mg, to be taken three and a half times per day. I have ordered a new lumbar MRI to reassess his current condition. We will follow up in six weeks to review the imaging and adjust the plan as needed. 10/28/2024 Lumbar radiculopathy (ICD-10 - M54.16) 10/28/2024 Abnormality of gait and mobility (ICD-10 - R26.9) 12/09/2024 Left hip pain (ICD-10 - M25.552) 12/25/2024 Long-term current use of opiate analgesic (ICD-10 - Z79.891) 02/10/2025 Left knee pain, unspecified chronicity (ICD-10 - M25.562) 02/10/2025 Other spondylosis with radiculopathy, lumbar region (ICD-10 - M47.26) 12/25/2024 Abnormality of gait and mobility (ICD-10 - R26.9) 12/09/2024 Left knee pain, unspecified chronicity (ICD-10 - M25.562) 10/28/2024 Left hip pain (ICD-10 - M25.552) 10/28/2024 Left knee pain, unspecified chronicity (ICD-10 - M25.562) 12/09/2024 Long-term current use of opiate analgesic (ICD-10 - Z79.891) 02/10/2025 Abnormality of gait and mobility (ICD-10 - R26.9) 12/25/2024 Left hip pain (ICD-10 - M25.552) 12/25/2024 Left knee pain, unspecified chronicity (ICD-10 - M25.562) 02/10/2025 Long-term current use of opiate analgesic (ICD-10 - Z79.891) 12/09/2024 Other spondylosis with radiculopathy, lumbar region (ICD-10 - M47.26) 10/28/2024 Other Lindsay Russell am scribing for Dr. Valeriano Welch. I, Dr. Valeriano Welch, personally performed the services described in this documentation, as scribed by Lindsay Jones, and it is both accurate and complete. 12/09/2024 Other Lindsay Russell am scribing for Dr. Valeriano Welch. I, Dr. Valeriano Welch, personally performed the services described in this documentation, as scribed by Lindsay Jones, and it is both accurate and complete. 02/10/2025 Other Lindsay Russell am scribing for Dr. Valeriano Welch. I, Dr. Valeriano Welch, personally performed the services described in this documentation, as scribed by Lindsay Jones, and it is both accurate and complete. Plan Of Treatment Next Appt Details Provider Name:Valeriano Welch, 03/17/2025 11:20:00 AM, [address] [place], [address], Insurance Providers Payer Name Payer Address Payer Phone Subscriber Number Group Number Insured Name Patient Relationship to Insured Coverage Start Date Coverage End Date [employer] [place] [employer] Replacement [address] [place] [address] [id number] Neal Crisostomo Self - patient is the insured Medical (General) History Medical History History ICD Code High Blood Pressure Diabetes Heart Disease Heart attack Stomach Ulcer stroke Arthritis Bleeding Disorder Surgical History Surgery Date(Month/Year) 4 heart stents collarbone, plate & screws
--- OUTSIDE RECORDS SUMMARY | 2025-02-20 10:33 | XMS_ITS | Encounter Summary ---
Author Organization [facility] Address [address] [place] [address] Care Team Providers Care Web Graphic Designer Name Role Phone Belinda Logan PATTERN FILER Primary Care Provider [phone] Encounter Details Date Type Department Care Team (Latest Contact Info) Description 09/01/2002 Outpatient Historical [facility]- [facility] [address] [place] [address] Noe Buenrostro MD NO ADDRESS ON FILE ROTATOR CUFF SYND NOS (Primary Dx); JOINT PAIN-MULT JTS Social History Tobacco Use Types Packs/Day Years Used Date Smoking Tobacco: Never Assessed Sex and Gender Information Value Date Recorded Sex Assigned at Not on file 

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
--- OUTSIDE RECORDS SUMMARY | 2025-02-20 10:33 | XMS_ITS | Encounter Summary ---
Author Organization [facility] Address [address] [place] [address] Care Team Providers Care Gas Regulator Repairer Helper Name Role Phone Belinda Logan NP Primary Care Provider [phone] Encounter Details Date Type Department Care Team (Latest Contact Info) Description 06/25/2001 Outpatient Historical [facility] Francisco Whitehead MD [address], [place] [id number] ACUTE URI NOS (Primary Dx); DIABETES UNCOMPL SHAHRAM-TYPE I (CMS/[facility]) Social History Tobacco Use Types Packs/Day Years Used Date Smoking Tobacco: Never Assessed Sex and Gender Information Value Date Recorded Sex Assigned at Not on file 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
--- NOTE | 2025-02-20 10:37 | PC.PHAR ---
[facility] is faxing current med list 02/20/25 10:30AM
[2025-02-20] MEDS: succinylcholine 20 mg/mL SDV 10mL 100 MG IVP (10:40)
--- NOTE | 2025-02-20 10:41 | ED_ITS ---
HPI - CPR 2 General: Chief Complaint: Cardiac Arrest/CPR Stated Complaint: chest pain Time Seen by Provider: 02/20/25 10:41 History of Present Illness: This is a 54-year-old man with a history of coronary artery disease, congestive heart failure, type 1 diabetes, diabetic neuropathy, history of stroke, who presents to the emergency room by ambulance with CPR being performed. EMS reports that he collapsed probably 10 to 15 minutes prior to their arrival. They have been doing CPR for 45 minutes. Initially they had a ventricular tachycardia with no pulse. They did shock him. He then was PEA. They have had no ROSC. He was discharged from the hospital yesterday after he had been admitted and had a PCI to the proximal and mid left circumflex artery. Drug- eluting stents. Distal LAD had 80% high-grade calcified stenosis was treated with balloon angioplasty with good result. Plan was to continue dual platelet and therapy with Plavix and aspirin. Related Data Home Medications ?Medication ?Instructions ?Recorded ?Confirmed nitroglycerin 0.4 mg sublingual 0.4 mg sublingual Q5M PRN Chest 03/05/19 02/20/25 tablet (Nitrostat) Pain hydrocodone 10 mg-acetaminophen 1 tab PO .Q4-6H PRN Pa in 02/17/25 02/20/25 325 mg tablet tamsulosin 0.4 mg capsule 0.4 mg PO QPM 02/20/2502/20 Previous Rx's ?Medication ?Instructions ?Recorded cholecalciferol (vitamin D3) 125 250 mcg (2 x 125 mcg (5,000 unit)) 08/12/24 mcg (5,000 unit) capsule PO .Daily OTC #60 caps blood-glucose,coppersmith helper,cont #1 ea 10/05/24 (Dexcom G7 Retail Seasonal Specialist) icosapent ethyl 1 gram capsule 2 g (2 x 1 gram) PO BID #120 caps 11/23/24 (Vascepa) levalbuterol tartrate 45 2 inh inhalation Q6H #15 gra ms 11/23/24 mcg/actuation aerosol inhaler (Xopenex HFA) tiotropium bromide 18 mcg capsule 1 cap inhalation VICKY LY #30 11/23/24 with inhalation device (Spiriva inhalations with HandiHaler) rosuvastatin 10 mg tablet 10 mg PO DAILY #30 tabs 11/0 07/03 pen needle, diabetic 33 gauge x #200 ea 02/02/25 blood-glucose sensor (Dexcom G7 #12 ea 02/15/25 Sensor device) carvedilol 3.125 mg tablet 3.125 mg PO BID #60 tabs evolocumab 140 mg/mL subcutaneous 140 mg SUBCUT .every 14 days #2 mL 02/15/25 syringe (Repatha Syringe) finasteride 5 mg tablet 5 mg PO DAILY #30 tabs 02/15 fluticasone propionate 50 2 spray intranasal DAILY #16 grams 02/15/25 mcg/actuation nasal spray,suspension gabapentin 600 mg tablet 600 mg PO TID pain #90 tabs 02/15/25 insulin degludec 100 unit/mL (3 See Rx Instructions SOLANO BCUT DAILY 02/15/25 mL) subcutaneous pen (Tresiba #45 mL FlexTouch U-100 insulin) insulin lispro 100 unit/mL See Rx Instructions SUBCUT TID #30 02/15/25 subcutaneous pen (Humalog KwikPen mL (U-100) Insulin) lisinopril 40 mg tablet 40 mg PO DAILY #30 tabs 11/02 metformin 500 mg tablet 500 mg PO DAILY #30 tabs 11/02 Held on 02/19/25. Instructions: Resume on 02/22/25. aspirin 81 mg tablet,delayed 81 mg PO DAILY #90 tabs 1 04/22/24 release clopidogrel 75 mg tablet 75 mg PO DAILY #90 tabs 02/08 05/05 Allergies Allergy/AdvReac Type Severity Reaction Status Date / Time Penicillins AdvReac Severe ALGY-Rash Verified 02/15/25 13:00 COUNTS INCLUDE 234 BEDS AT THE [facility] ED 2 COUNTS INCLUDE 234 BEDS AT THE [facility]: Medical History (Updated 02/20/25 @ 14:45 by Fern Peterson MD) CHF (congestive heart failure) Seasonal allergic rhinitis Allergy-induced asthma Urinary hesitancy Coronary artery disease DM type 1 (diabetes mellitus, type 1) Opioid contract exists Lumbar radiculitis FPC (current) use of opiate analgesic Diabetic neuropathy Chronic back pain Surgical History S/P shoulder surgery right S/P arterial stent 4x: 2009? Family History Father Diabetes Myocardial infarct Family/Other Myocardial infarct BOTH SIDES OF THE FAMILY Social History Smoking and tobacco/nicotine status: former use of tobacco/nicotine Second hand smoke exposure: No Alcohol intake: never Substance/Drug Use: never Adopted: No Caregiver/support person: No Lives independently: Yes Household members: spouse Marital status: Number of children: 2 service: No Current occupational status: disabled Do you think of yourself as: Straight/Heterosexual Current gender identity: Male Physical Exam 2 Narrative: EXAM NARRATIVE: General: unresponsive, intubated. Skin: Warm, dry Head: Normocephalic, atraumatic. Neck: Supple, trachea midline. Eye: pupils pinpoint, sluggish, equal Ears, nose, mouth and throat: ETT in place. Cardiovascular: Initially no pulse palpable. Delayed cap refill.. Respiratory: coarse, mechanically ventilated, breath sounds are equal, Symmetrical chest wall expansion. Gastrointestinal: Soft, Non distended Musculoskeletal: no deformity. Neurological: unable to assess. Psychiatric: unable to assess MDM - Cardiac Arrest/CPR Medical Decision Making Medical decision making Patient's reason for coming to the emergency room: Collapse, CPR Social determinants: Patient lives at home with his . I reviewed the patient's medical record. This is a 54-year-old man with a history of coronary artery disease, congestive heart failure, type 1 diabetes, diabetic neuropathy, history of stroke, who presents to the emergency room by ambulance with CPR being performed. EMS reports that he collapsed probably 10 to 15 minutes prior to their arrival. They have been doing CPR for 45 minutes. Initially they had a ventricular tachycardia with no pulse. They did shock him. He then was PEA. They have had no ROSC. He was discharged from the hospital yesterday after he had been admitted and had a PCI to the proximal and mid left circumflex artery. Drug- eluting stents. Distal LAD had 80% high-grade calcified stenosis was treated with balloon angioplasty with good result. Plan was to continue dual platelet and therapy with Plavix and aspirin. I reviewed the patient's current home meds Patient is on Plavix and aspirin Alternate historians: I spoke with family later. They said he was complaining of some palpitations but refused to go to the hospital. He said he went outside and suddenly became unresponsive. says just before this she felt like his face had swelled up. Differential diagnosis: including but not limited to and based on the above HPI, review of systems and physical exam: In this patient with collapse and cardio pulmonary arrest with an initial tachyarrhythmia likely had a recurrent heart attack or pulmonary embolism. Orders placed to evaluate differential diagnosis based on the above differential, HPI and physical exam Lab Review: Laboratory results were reviewed and interpreted by myself the emergency room physician. Leukocytosis with white count 18,000. Renal failure with an creatinine of 1.6. Initial troponin was only 38. proBNP was 274. This might make PE more likely. Chest x-ray: ET tube in place. No obvious infiltrates. No signs of obvious heart failure. This was reviewed and interpreted by myself the emergency room physician. I also reviewed the radiology report. EKG: Diffuse ST elevation. Endotracheal intubation Time: See nursing notes Confirmed: Patient, procedure, and site correct. Consent: , Emergent. Indication: Respiratory failure. Procedural sedation: Succinylcholine and etomidate . Monitoring: Cardiac, blood pressure, continuous pulse oximetry. Preparation: Pre oxygenated, Inline stabilization of cervical spine maintained, Ensured proper cuff inflation. Technique: Oral intubation: A 8 ET tube was inserted, glydescope, visualized cords and ett passing through cords. . Confirmation of tube placement: Bilateral chest rise, Positive color change indicated on end title CO2. Post procedure exam: Equal breath sounds. Complications: None. Performed by: Self. Total time: 10 minutes. CPR: CPR was performed here from -01 28 for a total of 45 minutes. He had had 45 minutes of CPR prior. Dr. Billingsley evaluated the patient with me here. We did achieve ROSC several different times. He was often in PEA. He had no shockable rhythms while he was here. Ultimately he went into asystole. He received epinephrine and pulse checks per protocol. See nursing documentation for full details. Also was placed on epinephrine drip and then Levophed drip. Time of 12:20 PM. Reexamination: General: ill appearing, Skin: pale Head: Normocephalic, atraumatic. Neck: trachea midline. Eye: pupils fixed and dilated Ears, nose, mouth and throat: ETT in place Cardiovascular: No palpable pulse. Respiratory: coarse, equal, mechanically ventilated. Gastrointestinal: Soft, Non distended Musculoskeletal: no deformity. Neurological: non responsive. Psychiatric: unable to evaluate. I spoke with family at length. was extremely distraught. The rest of the family expresses understanding. Ultimately I did have their blessing to stop CPR. They understood that the an hour and a half of CPR with worsening condition is futile. Consultation: I spoke with Dr. Billingsley. He was with me when it was decided to call code. He agrees that this situation is futile. He talked with the family as well. Assessment and plan: Cardiopulmonary arrest - Discharged to home Critical Care: -I spent a total of 45 minutes of critical care time managing the patient, independent of any other practitioner. -The time involved in the performance of separately reportable procedures was not counted towards critical care time. Lab Data 02/20/25 10:49 02/20/25 10:49 Radiology Impressions Chest X-Ray 02/20/25 10:42 IMPRESSION: Good endotracheal tube positioning Laboratory Results WBC 18.25 10^3/uL (3.29-11.43) H 02/20/25 10:49 RBC 4.56 10^6/uL (3.85-5.65) 02/20/25 10:49 Hgb 11.60 g/dL (11.27-16.99) 02/20/25 10:49 Hct 40.5 % (37-53) 02/20/25 10:49 MCV 88.8 fl (82-101) 02/20/25 10:49 MCH 25.4 pg (27-33) L 02/20/25 10:49 MCHC 28.6 g/dL (30-55) L 02/20/25 10:49 RDW 14.4 % (12.1-15.1) 02/20/25 10:49 Plt Count 200 10^3/cmm (157-399) 02/20/25 10:49 MPV 10.3 fL (7.4-10.4) 02/20/25 10:49 Neut % (Auto) 33.9 % 02/20/25 10:49 Lymph % (Auto) 53.0 % 02/20/25 10:49 [place] % (Auto) 6.9 % 02/20/25 10:49 Eos % (Auto) 1.2 % 02/20/25 10:49 Baso % (Auto) 0.5 % 02/20/25 10:49 Neut # (Auto) 6.16 10^3/uL (1.8-7.7) 02/20/25 10:49 Lymph # (Auto) 9.7 10^3/uL (0.8-4.8) H 02/20/25 10:49 [place] # (Auto) 1.3 10^3/uL (0.2-0.9) H 02/20/25 10:49 Eos # (Auto) 0.2 10^3/uL (0.0-0.8) 02/20/25 10:49 Baso # (Auto) 0.1 10^3/uL (0.0-0.1) 02/20/25 10:49 Nucleated RBC % (auto) 0.3 % 02/20/25 10:49 Nucleated RBCs # 0.1 /100WBC 02/20/25 10:49 PT 16.60 SECONDS (12.1-14.9) H 02/20/25 10:49 INR 1.25 (0.8-1.2) H 02/20/25 10:49 APTT 47.4 SECONDS (23.9-36.7) H 02/20/25 10:49 Specimen Type Arterial 02/20/25 10:40 Sample Site Not specified 02/20/25 10:40 ABG pH 6.95 (7.35-7.45) L* 02/20/25 10:40 ABG pCO2 74.8 mmHg (35-45) H* 02/20/25 10:40 ABG pO2 55.3 mmHg (80.0-100.0) L 02/20/25 10:40 ABG PO2/FiO2 Ratio 55 02/20/25 10:40 ABG HCO3 16.2 mmol/L (22-26) L 02/20/25 10:40 ABG O2 Saturation 63.7 02/20/25 10:40 ABG Base Excess -16.5 mmol/L (-2.0-2.0) L 02/20/25 10:40 [place] Test N/a 02/20/25 10:40 A-a O2 Gradient 74.7 mmHg (5-10) H 02/20/25 10:40 Hematocrit 36.2 % (42-52) L 02/20/25 10:40 Hgb O2 Saturation 63.1 % (95-100) L 02/20/25 10:40 Carboxyhemoglobin 0.8 %THgb (0.4-20.1) 02/20/25 10:40 Methemoglobin 0.0 % (0.4-1.5) L 02/20/25 10:40 Total Hemoglobin 11.8 g/dL (14-18) L 02/20/25 10:40 Sodium 139.0 mmol/L (131-143) 02/20/25 10:40 Potassium 4.7 mmol/L (3.5-5.0) 02/20/25 10:40 Glucose 490.0 mg/dL (70-115) H 02/20/25 10:40 Ionized Calcium 1.1 mmol/L (1.1-1.4) 02/20/25 10:40 O2 Delivery Device Ambu 02/20/25 10:40 O2 Liters/Min 15.0 % 02/20/25 10:40 FiO2 100.0 % 02/20/25 10:40 Knockout Worker ID [place] 02/20/25 10:40 Sodium 135 mmol/L (136-145) L 02/20/25 10:49 Potassium 4.4 mmol/L (3.5-5.1) 02/20/25 10:49 Chloride 98 mmol/L (98-107) 02/20/25 10:49 Carbon Dioxide 16 mmol/L (22-29) L 02/20/25 10:49 Anion Gap 25.4 (5-19) H 02/20/25 10:49 BUN 15 mg/dL (6-20) 02/20/25 10:49 Creatinine 1.6 mg/dL (0.7-1.2) H 02/20/25 10:49 GFR Calculation 45.1 mL/min (90-130) L 02/20/25 10:49 Glucose 490 mg/dL (65-115) H 02/20/25 10:49 Calculated Osmolality 303 mOsm/kg (285-295) H 02/20/25 10:49 Lactic Acid 9.7 mmol/L (0.5-2.2) H* 02/20/25 10:49 Calcium 8.0 mg/dL (8.5-10.5) L 02/20/25 10:49 Total Bilirubin 0.4 mg/dL (0.15-1.2) 02/20/25 10:49 AST 199 U/L (0-40) H 02/20/25 10:49 ALT 158 U/L (0-41) H 02/20/25 10:49 Alkaline Phosphatase 150 U/L (40-130) H 02/20/25 10:49 Troponin T Baseline 38 ng/L (0-15) H 02/20/25 10:49 NT-Pro-B Natriuret Pep 274 pg/mL (0-125) H 02/20/25 10:49 Total Protein 5.4 g/dL (6.6-8.7) L 02/20/25 10:49 Albumin 3.0 g/dL (3.5-5.2) L 02/20/25 10:49 Globulin 2.4 g/dL (1.3-4.6) 02/20/25 10:49 All radiology interpretation(s) finalized by discharge Discharge Plan Discharge Patient Disposition: Clinical Impression: Cardiopulmonary arrest, , CHF (congestive heart failure), Essential hypertension Coronary artery disease Qualifiers: Coronary Disease-Associated Artery/Lesion type: [place] artery [place] vs. transplanted heart: [place] heart Associated angina: without angina Qualified Code(s): I25.10 - Atherosclerotic heart disease of [place] coronary artery without angina pectoris DM type 1 (diabetes mellitus, type 1) Qualifiers: Diabetes mellitus complication status: with hyperglycemia Qualified Code(s): E 10.65 - Type 1 diabetes mellitus with hyperglycemia Condition: Stable Prescriptions: No Action nitroglycerin [Nitrostat] 0.4 mg tablet, sublingual 0.4 mg SUBLINGUAL Q5M PRN (Reason: Chest Pain) (DME) Dexcom G7 Retail Seasonal Specialist Misc See Rx Instructions .ROUTE .MEDSUPPLY Qty: 1 0RF Rx Instructions: As directed metformin 500 mg tablet 500 mg PO DAILY Qty: 30 5RF lisinopril 40 mg tablet 40 mg PO DAILY Qty: 30 2RF insulin lispro [Humalog KwikPen Insulin] 100 unit/mL insulin pen See Rx Instructions SUBCUT TID Qty: 30 5RF Rx Instructions: 28-40U SUBCUT three times daily; Tresiba FlexTouch U-100 100 unit/mL (3 mL) insulin pen See Rx Instructions SUBCUT DAILY Qty: 45 2RF Rx Instructions: up to 80 units SUBCUT daily; gabapentin 600 mg tablet 600 mg PO TID Qty: 90 5RF fluticasone propionate 50 mcg/actuation spray,suspension 2 spray INTRANASAL DAILY Qty: 16 5RF Repatha Syringe 140 mg/mL syringe 140 mg SUBCUT .every 14 days Qty: 2 2RF carvedilol 3.125 mg tablet 3.125 mg PO BID Qty: 60 5RF (DME) Dexcom G7 Sensor Device See Rx Instructions .ROUTE .MEDSUPPLY Qty: 12 3RF Rx Instructions: change every 10 days finasteride 5 mg tablet 5 mg PO DAILY Qty: 30 5RF cholecalciferol (vitamin D3) 125 mcg (5,000 unit) capsule 250 mcg PO .Daily OTC Qty: 60 2RF Vascepa 1 gram capsule 2 g PO BID Qty: 120 5RF levalbuterol tartrate [Xopenex HFA] 45 mcg/actuation HFA aerosol inhaler 2 inh INHALATION Q6H Qty: 15 5RF Spiriva with HandiHaler 18 mcg capsule, w/inhalation device 1 cap inhalation DAILY Qty: 30 5RF Rx Instructions: puncture 1 cap using device; one dose = 2 inhalations rosuvastatin 10 mg tablet 10 mg PO DAILY Qty: 30 5RF (DME) pen needle, diabetic 33 gauge x 5/32 needle See Rx Instructions .ROUTE .MEDSUPPLY Qty: 200 5RF Rx Instructions: 4 times day if needed hydrocodone-acetaminophen 10-325 mg Tablet 1 tab PO .Q4-6H PRN (Reason: Pain) aspirin 81 mg Tablet,Delayed Release (Dr/Ec) 81 mg PO DAILY Qty: 90 3RF clopidogrel 75 mg Tablet 75 mg PO DAILY Qty: 90 3RF tamsulosin 0.4 mg capsule 0.4 mg PO QPM Referrals: Belinda Logan, ETL INFORMATICA DEVELOPER-C [Primary Care Provider, [facility]] Print Language: Arabic Probable Cause of Probable cause of : Cardiac arrest Coding Level of Care Code ED Mule Tender for Preeti Salmon
--- NOTE | 2025-02-20 10:42 | XRR_ITS ---
PROCEDURE INFORMATION: Exam: XR Chest Exam date and time: 02/20/2025 10:46 AM Age: 54 years old Clinical indication: Device placement; Ett placement (vent status); Additional info: Intubated, cpr TECHNIQUE: Imaging protocol: Radiologic exam of the chest. Views: 1 view. COMPARISON: CR XR chest 1V portable [id number] 07/11/2024 10:14 AM FINDINGS: Tubes, catheters and devices: The endotracheal tube is in good position within the trachea. Lungs: Both lungs demonstrate diffuse interstitial coarsening with no areas of dense consolidation or mass noted. Pleural spaces: Unremarkable. No pleural effusion. No pneumothorax. Heart/Mediastinum: Unremarkable. No cardiomegaly. Bones/joints: A metallic plate and screws transfix old fractures of the right clavicle. XR/XR chest 1V portable [id number] IMPRESSION: Good endotracheal tube positioning
[2025-02-20 10:48] LABS: Alveolar-Arterial Oxygen Gradi 74.7 mmHg (5-10); Arterial Blood Gas Hematocrit 36.2 % (42-52); Blood Gas LPM 15.0 %; Blood Gas Operator Identificat MONRO; Blood Gas Sample Site Not specified; Blood Gas Sample Type Arterial; Carboxyhemoglobin 0.8 %THgb (0.4-20.1); Glucose Level-ABG 490.0 mg/dL (70-115); HCO3 ABG 16.2 mmol/L (22-26); Ionized Calcium Level - ABG 1.1 mmol/L (1.1-1.4); Methemoglobin 0.0 % (0.4-1.5); Oxygen Saturation ABG 63.7; PO2 ABG 55.3 mmHg (80.0-100.0); PO2 FiO2 Ratio Arterial Blood 55; Potassium Level - ABG 4.7 mmol/L (3.5-5.0); Sodium Level - ABG 139.0 mmol/L (131-143)
[2025-02-20] MEDS: EPINEPHrine 2.5 MG in sodium chloride 0.9% 250 ML 6.06 MG IV (10:49)
[2025-02-20 10:52] LABS: Hematocrit 40.5 % (37-53); Hemoglobin 11.60 g/dL (11.27-16.99); Mean Corpuscular HGB Conc 28.6 g/dL (30-55); Mean Corpuscular Hemoglobin 25.4 pg (27-33); Mean Corpuscular Volume 88.8 fl (82-101); Nucleated Red Blood Cells % 0.3 %; Platelet Count 200 10^3/cmm (157-399); Red Blood Count 4.56 10^6/uL (3.85-5.65); White Blood Count 18.25 10^3/uL (3.29-11.43)
--- NOTE | 2025-02-20 10:56 | ECG_ITS ---
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 Measurements Intervals [place] Rate: 109 P: 65 FL: 232 QRS: 58 QRSD: 141 T: 180 QT: 413 QTc: 558 Interpretive Statements SINUS TACHYCARDIA WITH FIRST DEGREE AV BLOCK WITH OCCASIONAL ECTOPIC PREMATURE COMPLEXES LEFT BUNDLE BRANCH BLOCK [120+ ms QRS DURATION, 80+ ms Q/S IN V1/V2, 85+ ms R IN I/aVL/V5/V6] MARKED ST ELEVATION, CONSIDER INFERIOR INJURY MARKED ST ELEVATION, CONSIDER ANTEROLATERAL INJURY ACUTE NE INTERPRETATION BASED ON A DEFAULT AGE OF 40 YEARS Compared to ECG 01/12/2025 16:26:55 First degree AV block now present Left bundle-branch block now present ST (T wave) deviation now present Electronically Signed On 02-20-2025 19:43:19 LEADERSHIP DEVELOPMENT CONSULTANT by Godwin Thomas M.D. [id number]
[2025-02-20] MEDS: norepinephrine 4 MG/250 ML BAG 30 MG IV (11:00)
[2025-02-20 11:07] LABS: INR 1.25 (0.8-1.2); Prothrombin Time 16.60 SECONDS (12.1-14.9)
[2025-02-20 11:09] LABS: Partial Thromboplastin Time 47.4 SECONDS (23.9-36.7)
[2025-02-20 11:18] LABS: Troponin(5th) Baseline 38 ng/L (0-15)
[2025-02-20 11:20] LABS: Alanine Aminotransferase 158 U/L (0-41); Albumin Level 3.0 g/dL (3.5-5.2); Alkaline Phosphatase 150 U/L (40-130); Anion Gap 25.4 (5-19); Aspartate Amino Transferase 199 U/L (0-40); Blood Urea Nitrogen 15 mg/dL (6-20); Calcium 8.0 mg/dL (8.5-10.5); Carbon Dioxide 16 mmol/L (22-29); Chloride 98 mmol/L (98-107); Globulin 2.4 g/dL (1.3-4.6); Glucose 490 mg/dL (65-115); Osmolality Calculated 303 mOsm/kg (285-295); Potassium 4.4 mmol/L (3.5-5.1); Sodium 135 mmol/L (136-145); Total Protein 5.4 g/dL (6.6-8.7)
[2025-02-20 11:21] LABS: Lactic Sepsis W/Reflex 9.7 mmol/L (0.5-2.2)
[2025-02-20 11:23] LABS: Reflex Lactate Order REFLEX LACTIC ORDERD
[2025-02-20 11:27] LABS: NT Pro B Type Natriuretic Pept 274 pg/mL (0-125)
--- NOTE | 2025-02-20 11:40 | PC.NURSE ---
room cleaned up, pt family brought back at this time
[2025-02-20 11:43] LABS: ABG PCO2 74.8 mmHg (35-45); ABG PH Result 6.95 (7.35-7.45)
--- NOTE | 2025-02-20 11:48 | PC.NURSE ---
WASTED 100MG SUCCINYLCHOLINE WITH BROOKS SAWANT RN
--- NOTE | 2025-02-20 12:24 | PC.NURSE ---
see Client Professional note for code note, medical authorization specialist.
--- NOTE | 2025-02-20 12:38 | PC.NURSE ---
took pt's wallet and comb home
--- NOTE | 2025-02-20 12:43 | PC.NURSE ---
MTS was notified of pts at 1149. They are reviewing the pt and will be reaching out to the family. [phone] . Pt was released at this time.
--- NOTE | 2025-02-20 12:54 | PC.NURSE ---
CODE NOTE: pt arrives to ED with compressions via YENNY device. per EMS x7 EPI, x1 bicarb admin; pt was unresponsive for 10min without compressions prior to EMS arrival. EMS reports CPR for approx 45 min prior to arrival to [facility]. pt was seen yesterday in cath lab radiological technologist for scheduled procedure. PEA noted on pt arrival @1035: compressions via YENNY, x1 Epi, x1 BiCarb admin @1036: pulse check, no pulse, asystole @1038: pulse check, bradycardia HR 41, x1 Epi admin @1041: CPR continued via YENNY, x1 Epi admin @1043: pulse check, no pulse, asystole @1044: compressions continued via YENNY, x1 Epi admin @1045: pulse check, no pulse, asystole, compressions continued via manual compression @1047: pulse check, no pulse, asystole @1048: Epi drip started @1049: pulse check, HR 70 @1054: x1 Epi admin, CPR started again, no pulse. @1056: pulse check, pulse noted @1100: x1 Epi admin, Levophed starte, CPR started again, no pulse. @1102: Pulse check, no pulse. Epi gtt increased @1104: compressions started, x1 biCarb admin @1105: pulse check, no pulse, compressions continued, x1 epi admin @1107: pulse check, no pulse, compressions continued @1109: pulse check, no pulse, compressions continued, x1 epi admin @1111: pulse check, HR 104 noted @1114: CPR started again, no pulse @1116: pulse check, no pulse, compressions continued @1117: x1 Epi admin @1118: pulse check, no pulse, compressions continued @1120: compressions stopped, TOD @1120
--- NOTE | 2025-02-20 14:00 | PC.NURSE ---
PT was placed in the [facility] at 1357. PT had a pair of jeans, shoes and a wedding ring that the nurse will call the family about
--- NOTE | 2025-02-20 15:49 | PC.NURSE ---
PTs shoes, jeans and wedding ring were placed in a belongings bag and are with the pt at this time
--- NOTE | 2025-02-21 01:54 | PC.NURSE ---
[facility] staff member Stephanie picked pt up at 0139. belongings sent with [facility].
== END 2025-02-20 13:00 | disposition expired ==
PROVIDERS: Emergency Provider Emergency Medicine; PCP Nurse Practitioner
DX: I46.9 Cardiac arrest, cause unspecified (principal); I11.0 Hypertensive heart disease with heart failure; I50.9 Heart failure, unspecified; I25.10 Atherosclerotic heart disease of native coronary artery without angina pectoris; E10.65 Type 1 diabetes mellitus with hyperglycemia; Z79.84 Long term (current) use of oral hypoglycemic drugs; Z79.4 Long term (current) use of insulin; Z79.82 Long term (current) use of aspirin; Z79.02 Long term (current) use of antithrombotics/antiplatelets; Z87.891 Personal history of nicotine dependence
CPT/HCPCS: 31500; 36600; 71045; 80051; 80053; 82330; 82805; 83605; 83880; 84484; 85025; 85610; 85730; 93005; 94799; 96365; 96375; 99291; 99292; J0169; J0330; J7050; J9999